=== PATIENT | female | born 1945 | race Caucasian/White ===

== ENCOUNTER 2022-01-31 16:15 | Inpatient (IN) | payer MEDICARE, BC, SELFPAY ==
[2022-01-31] VITALS (46 sets, daily range): BP systolic 67–138; BP diastolic 50–80; PULSE 67–89; RESP 10–25; TEMP 36.4–36.6; O2SAT 98–100; BMI 22.7
--- NOTE | ~2022-01-31 | XR_ITS ---
XR chest ET placement 01/31/2022 16:55 Indication: Endotracheal tube placement Procedure: AP view of the chest Comparison: 08/12/2018 Findings: Endotracheal tube 8 mm above the clarence. Heart size normal. Diffuse bilateral interstitial infiltrates with peribronchial thickening, edema versus atypical pneumonia. No pleural effusion or pn eumothorax. NG tube in the stomach. No acute osseous abnormality. Impression: 1: Endotracheal tube tip 8 mm above the clarence. Recommend retraction approximately 4 cm. 2: Diffuse bilateral interstitial infiltrates which may represent interstitial edema or atypical pne umonia. Reviewed, dictated and finalized at location A. R DIAMOND POWDER Impression: 1: Endotracheal tube tip 8 mm above the clarence. Recommend retraction approximat ellen 4 cm. 2: Diffuse bilateral interstitial infiltrates which may represent interstitial edema or atypical pneumonia.
--- NOTE | ~2022-01-31 | XR_ITS ---
XR abdomen NG/feed tube insert INDICATION: Evaluate NG tube position. TECHNIQUE: Limited KUB perform for evaluating NG tube . COMPARISON: No prior studies for comparison. FINDINGS: NG tube tip in the stomach. Visualized bowel gas pattern is unremarkable.There is a right hip arthroplasty. IMPRESSION: 1: NG tube tip in the stomach. Reviewed, dictated and finalized at location A. SHER DENTURE
--- NOTE | ~2022-01-31 | US_ITS ---
EXAMINATION:US venous doppler LE BI INDICATION:Leg edema TECHNIQUE: Multiple grayscale, color flow and Doppler images of the right and left lower extremity de ep venous systems were obtained and reviewed. COMPARISON:No prior studies for comparison. FINDINGS: The common femoral, superficial femoral and popliteal veins demonstrate normal respiratory variation, augmentation and compressibility. Color flow is also seen within the posterior tibial, pe roneal, greater saphenous and profunda veins. IMPRESSION: 1: No lower extremity deep venous thrombosis. Reviewed, dictated and finalized at location A. F GRINDER AND SCREENER
--- NOTE | ~2022-01-31 | XR_ITS ---
EXAMINATION: XR chest 1V portable DATE: 02/02/2022 06:14 INDICATION: Intubated TECHNIQUE: frontal view of the chest was obtained. COMPARISON: Chest radiograph dated 02/01/2022 FINDINGS: Endotracheal tube tip 4.5 cm above the clarence. Nasogastric tube extends below the left hemidiaphragm with distal tip collimated off the study. Mild opacities at the bilateral lower lung zones including blunting at the right costophrenic angle c onsistent with small right pleural effusion. No pneumothorax or left pleural effusion. The cardiomedi astinal silhouette is normal. IMPRESSION: 1. Mild bibasilar opacities which could represent atelectasis or pneumonia. Small left pleural effusi on. Reviewed, dictated and finalized at location A. NING ENGINEER IMPRESSION: 1. Mild bibasilar opacities which could represent atelectasis or pneumonia. Sma ll left pleural effusion.
--- NOTE | ~2022-01-31 | XR_ITS ---
EXAMINATION: XR chest ET placement Exam Date/Time: 01/31/2022 20:00 SKIP MINER HISTORY: adjusted, confirm placement Comparison: Same date at 4:52 PM. RESULT: Lines, tubes, and devices: Endotracheal tube remains at the level of the clarence. NG tube, in good po sition. Lungs and pleura: Unchanged diffuse reticular peribronchial vascular interstitial opacities. Cardiomediastinal silhouette: Stable. Other: No acute osseous or upper abdominal finding. IMPRESSION: The endotracheal tube remains low-positioned, recommend retraction by 3 cm. Results reported telephonically to Valerio Foster RN by Dr. Day at 8:36 PM on 01/31/2022. Reviewed, dictated and finalized at location K. MINER
--- NOTE | ~2022-01-31 | US_ITS ---
US renal BI 02/01/2022 19:43 Procedure: Realtime transabdominal ultrasound of the kidneys and bladder. Indication: Acute renal insufficiency Comparison: No prior studies for comparison. Findings: Renal echotexture is normal bilaterally without hydronephrosis, contour deforming mass or r enal calculus. The right kidney measures 10.1 cm and left kidney measures 10 cm. Bladder within norm al limits. Impression: 1: Unremarkable renal ultrasound. No stones, masses or hydronephrosis. Reviewed, dictated and finalized at location A. OR OF OPTOMETRY Impression: 1: Unremarkable renal ultrasound. No stones, masses or hydronephrosis.
--- NOTE | ~2022-01-31 | XR_ITS ---
EXAMINATION: XR chest 1V portable INDICATION: Respiratory failure TECHNIQUE: Portable AP chest at 0530 hours COMPARISON: 01/31/2022 FINDINGS: The endotracheal tube ends approximately 1.9 cm above the clarence. The nasogastric tube is f ollowed as far as the stomach. Its tip is beyond the inferior margin of the radiograph. No pleural ef fusion or pneumothorax. There are minimal patchy opacities throughout all lung zones. The cardiomedia stinal silhouette is stable. IMPRESSION: 1. Mild diffuse lung disease, consistent with atelectasis versus pneumonia. Reviewed, dictated and finalized at location A. NG INTERN
--- NOTE | ~2022-01-31 | XR_ITS ---
EXAMINATION: XR chest 1V portable Exam Date/Time: 01/31/2022 20:55 PLANT SECURITY GUARD HISTORY: CXR, et placement Comparison: Same date at 8:03 PM. RESULT: Lines, tubes, and devices: Endotracheal tube now terminates 3 cm above the clarence. NG tube terminate s out of the [id number]. Artifact from overlying hands and bag ventilator. Lungs and pleura: Interval decreased pulmonary opacities, likely related to technique. Cardiomediastinal silhouette: Stable. Other: No acute osseous or upper abdominal finding. IMPRESSION: Endotracheal tube terminates 3 cm above the clarence. Reviewed, dictated and finalized at location K. T SECURITY GUARD
--- NOTE | 2022-01-31 16:21 | ED.GENADULT ---
HPI - General Adult General Chief complaint: Altered Mental Status Stated complaint: unresponsive & intubated Time Seen by Provider: 01/31/22 16:17 Source: EMS and RN notes reviewed Mode of arrival: EMS Limitations: clinical condition History of Present Illness HPI narrative: Patient is 76 years old white female lives alone, called 911 earlier today for shortness of breath, on arrival to her house patient was unable to talk, agonal breathing, subsequently intubated, she had etomidate 20 mg IV, Decadron 10 mg IV and nebulizer treatment prior to arrival to the emergency room. No significant other at the bedside at this time. Related Data Allergies Allergy/AdvReac Type Severity Reaction Status Date / Time PIO Inhibitors Allergy Unknown Verified 08/12/18 05:34 clarithromycin Allergy Unknown Verified 08/12/18 05:34 clonidine Allergy Unknown Verified 08/12/18 05:34 codeine Allergy Unknown Verified 08/12/18 05:34 Iodinated Contrast Media Allergy Unknown Verified 08/12/18 05:34 Contrast Media Allergy Unknown Uncoded 08/12/18 05:34 Review of Systems Review of Systems: All systems reviewed & are unremarkable except as noted in HPI and below Exam Narrative: General appearance: Well-developed, well-nourished, unresponsive, intubated, still under the influence of etomidate. Skin: Normal color, chronic stasis dermatitis of the lower legs bilaterally, 2+ edema bilaterally Head: Normocephalic, nontraumatic Eyes: Clear conjunctiva ENT: Oropharynx normal, ears normal, nose normal Neck: Supple, nontender Chest and respiratory: Intubated, diminution of air entry bilaterally was rales Heart: Normal heart beats possible a murmur Abdomen: Soft, , no organomegaly, quiet bowel sounds Vascular: Normal peripheral pulses, normal capillary refill. Neurologic: Intubated, unresponsive Course Vital Signs Vital signs: Vital Signs Pulse Rate 81 01/31/22 16:32 Pulse Oximetry 99 01/31/22 16:32 Oxygen Delivery Mechanical Ventilation 01/31/22 16:32 Fraction of Inspired Oxygen 100 01/31/22 16:32 Temperature 36.4 C 01/31/22 17:00 Pulse Rate 76 01/31/22 17:00 Respiratory Rate 16 01/31/22 17:00 Blood Pressure 80/58 L 01/31/22 17:00 Pulse Oximetry 100 01/31/22 17:00 Oxygen Delivery Mechanical Ventilation 01/31/22 17:00 Fraction of Inspired Oxygen 100 01/31/22 16:32 Medical Decision Making Vital Signs Vital Signs: Vital Signs Pulse Rate 81 01/31/22 16:32 Pulse Oximetry 99 01/31/22 16:32 Oxygen Delivery Mechanical Ventilation 01/31/22 16:32 Fraction of Inspired Oxygen 100 01/31/22 16:32 Temperature 36.4 C 01/31/22 17:00 Pulse Rate 76 01/31/22 17:00 Respiratory Rate 16 01/31/22 17:00 Blood Pressure 80/58 L 01/31/22 17:00 Pulse Oximetry 100 01/31/22 17:00 Oxygen Delivery Mechanical Ventilation 01/31/22 17:00 Fraction of Inspired Oxygen 100 01/31/22 16:32 Lab Data 01/31/22 16:51 Labs: Lab Results 01/31/22 01/31/22 01/31/22 Range/Units 16:51 16:51 16:51 WBC Pending RBC Pending Hgb Pending Hct Pending MCV Pending MCH Pending MCHC Pending RDW Pending Plt Count Pending MPV Pending Immature Gran % (Auto) Pending Neut % (Auto) Pending Lymph % (Auto) Pending [place] % (Auto) Pending Eos % (Auto) Pending Baso % (Auto) Pending Lymph # (Auto) Pending [place] # (Auto) Pending Eos # (Auto) Pending Baso # (Auto) Pending Abs Immat Gran (auto) Pending Absolute Neuts (auto) Pending Absolute Nucleated RBC Pending Nucleated RBC % Pending PT INR
--- NOTE | 2022-01-31 16:22 | ECG_ITS ---
Measurements Intervals [place] Rate: 82 P: 82 MA: 146 QRS: 79 QRSD: 77 T: 78 QT: 362 QTc: 423 Interpretive Statements SINUS RHYTHM WITH OCCASIONAL SUPRAVENTRICULAR PREMATURE COMPLEXES BORDERLINE ECG COMPARED TO ECG 08/12/2018 05:14:20 NO SIGNIFICANT CHANGES Electronically Signed On 01-31-2022 17:41:19 REEL OPERATOR by Rudi Crawley M.D.
[2022-01-31 17:03] LABS: Basophils Percent Auto 0.3 % (0.2-1.2); Eosinophils Absolute Auto 0.3 K/mm3 (0-0.3); Eosinophils Percent Auto 3.7 % (0-4.4); Hemoglobin 11.6 g/dL (12.0-15.0); Immature Granulocyte Absolute 0.02 K/mm3 (0.00-0.031); Immature Granulocyte Percent A 0.3 % (0-0.5); Lymphocytes Absolute Auto 1.37 K/mm3 (0.9-3.2); Lymphocytes Percent Auto 19.5 % (18.3-44.2); Mean Corpuscular HGB Conc 32.2 g/dl (32-36); Mean Corpuscular Hemoglobin 34.3 pg (26-34); Mean Corpuscular Volume 106.5 fl (80-100); Mean Platelet Volume 10.9 fl (7.4-10.4); Monocytes Absolute Auto 0.4 K/mm3 (0.1-0.6); Monocytes Percent Auto 6.1 % (2.6-8.5); Neutrophils Absolute Auto 4.9 K/mm3 (1.3-6.7); Neutrophils Percent Auto 70.1 % (45.5-73.1); Platelet Count Result 246 k/mm3 (150-375); Red Blood Count 3.38 M/mm3 (4.2-5.4); Red Cell Distribution Width 11.9 % (11.5-14.5)
[2022-01-31 17:05] LABS: Appearance Urine Clear (Clear); Bilirubin Urine Negative (Negative); Blood Urine 1+ (Negative); Color Urine Yellow (Yellow); Glucose Urine UA Trace mg/dL (Negative); Ketones Urine Negative (Negative); Leukocyte Esterase Ur Negative LEU/UL (Negative); Nitrate Urine Negative (Negative); Protein Urine 3+ mg/dL (Negative); Specific Grav Ur 1.025 (1.001-1.035); Urobilinogen Urine 0.2 mg/dL (<2.0)
[2022-01-31 17:06] LABS: Alveolar/Arterial O2 Gradient 110.1 mmHg; Base Excess ABG -3.9 mEq/l (+/-2.0); Fractional Inspired Oxygen 100 %; Oxygen Content ABG 16.6 %vol (16.0-22.0); Oxygen Saturation ABG 99.9 % (95.0-100.0); Oxyhemoglobin 96.7 % THb (90.0-100.0); PCO2 ABG 57.9 mmHg (35.0-45.0); PO2 FiO2 Ratio Arterial Blood 5.45 %; Total Hemoglobin 11.1 g/dL (12.0-18.0)
[2022-01-31 17:08] LABS: Triglycerides 434 mg/dL (<150)
[2022-01-31 17:09] LABS: Modified Allen's Test Pass; Site Drawn RIGHT RADIAL; pH ABG 7.236 (7.350-7.450)
[2022-01-31 17:10] LABS: Arterial Blood Gas PEEP 5 cmH2O; Arterial Blood Gas Tidal Volume 400 ml; Arterial Blood Gas Vent Mode CMV; Arterial Blood Gas Ventilator rate 13 /MIN; Device VENTILATOR
[2022-01-31 17:12] LABS: INR 1.3; Partial Thromboplastin Time 26.4 SECONDS (22.3-36.8); Prothrombin Time 15.8 Seconds (11.1-14.7)
[2022-01-31] MEDS: PROPOFOL IV EMULSION 100 ML 3.92 MG IV CONT (17:15)
[2022-01-31 17:16] LABS: RBC Urine 0-2 /hpf (0-2); WBC Urine 0-3 /hpf
[2022-01-31] MEDS: SODIUM CHLORIDE 0.9% IV 1,000 ML 999 ML (17:16)
[2022-01-31 17:18] LABS: NT Pro B Type Natriuretic Pept 463 pg/mL (5-100)
[2022-01-31] MEDS: ALBUTEROL SULFATE NEB 2.5 MG/3 ML INH 5 MG INHALATION ×2 (17:18→20:00)
[2022-01-31 17:20] LABS: Add Urine Microscopic? YES
[2022-01-31 17:36] LABS: Influenza A QL RT-PCR Negative (Negative); Influenza B QL RT-PCR Negative (Negative); RSV RNA, RT-PCR Negative (Negative); SARS-CoV-2 RNA PCR Negative
[2022-01-31 18:23] LABS: Glucose Point of Care 95 mg/dl (65-105)
[2022-01-31] MEDS: MIDAZOLAM 100MG/NS 100ML(*CRX) 100 MG/100 ML BAG IV CONT (18:31)
[2022-01-31] MEDS: FENTANYL 2,500MCG/NS250ML(*CRX 2,500 MCG/250 ML BAG 7.5 MCG IV CONT (18:32)
[2022-01-31 18:38] LABS: Alveolar/Arterial O2 Gradient 114.3 mmHg; Base Excess ABG -2.6 mEq/l (+/-2.0); Device VENTILATOR; Fractional Inspired Oxygen 40 %; HCO3 ABG 24.1 mEq/l (22.0-26.0); Modified Allen's Test Pass; Oxygen Content ABG 15.9 %vol (16.0-22.0); Oxygen Saturation ABG 97.7 % (95.0-100.0); Oxyhemoglobin 95.3 % THb (90.0-100.0); PCO2 ABG 49.6 mmHg (35.0-45.0); PO2 ABG 113.9 mmHg (80.0-100.0); PO2 FiO2 Ratio Arterial Blood 2.85 %; Site Drawn RIGHT RADIAL; Total Hemoglobin 11.7 g/dL (12.0-18.0); pH ABG 7.304 (7.350-7.450)
[2022-01-31 18:39] LABS: Arterial Blood Gas PEEP 5 cmH2O; Arterial Blood Gas Tidal Volume 450 ml; Arterial Blood Gas Vent Mode CMV; Arterial Blood Gas Ventilator rate 16 /MIN
--- NOTE | 2022-01-31 19:00 | PM.IMHP ---
H&P: HPI History of Present Illness Date/Time: 01/31/22 19:00 Chief Complaint: Shortness of breath. Narrative: This is a 76-year-old female smoker with COPD, coronary artery disease with history of stents, hypertension, hyperlipidemia, and diabetes who presented to the emergency department via EMS from home for evaluation of shortness of breath. She is intubated on mechanical ventilation at the time my evaluation however she is awake, following commands, and can answer questions by either nodding or shaking her head. It seems as though she felt okay when she got up this morning though she has had chills and a cough the last couple of days. As the day went on she started to feel progressively more short of breath and it got so severe that she called 911 as her rescue inhaler was not helping. She denies headache, chest pain, syncope, abdominal pain, nausea, vomiting, and diarrhea. On EMS arrival she was reportedly unresponsive with agonal respirations and she was intubated in the field. She received IV Decadron and and a nebulizer treatment in route to the hospital. Chest x-ray on arrival showed diffuse bilateral interstitial infiltrates (interstitial edema edema or atypical pneumonia); she tested negative for influenza, COVID, and RSV. She has since been started on broad-spectrum antibiotics and is being admitted to the ICU for further treatment and evaluation. Review of Systems Review of Systems: A review of systems was obtained but limited as the patient can only nod and shake her head as she is intubated on mechanical ventilation. Except as documented all other systems were negative. [facility] Past Medical History Medical History (Updated 01/31/22 @ 23:42 by Maribel Pérez PA-C) Anxiety Chronic obstructive pulmonary disease Coronary artery disease Dyslipidemia Hypertension Insulin dependent diabetes mellitus Pneumonia Tobacco dependence Surgical History Surgical History (Updated 01/31/22 @ 23:30 by Maribel Pérez PA-C) History of cardiac catheterization History of heart artery stent History of right hip replacement Family History Family History Other Unknown family medical history Social History Social History (Updated 01/31/22 @ 23:33 by Maribel Pérez PA-C) Social History: Surrogate medical decision maker: Carol Cha, daughter. Code status: Full code. Smoking status: Current every day smoker Alcohol intake: former Substance use: never Spiritual care concerns: No Meds Home Medications and Allergies Home Medications Medication Instructions Recorded Confirmed Type albuterol sulfate 90 mcg/actuation 2 puff inhalation Q6H 01/31/22 01/31/22 History aerosol inhaler aspirin 81 mg tablet,delayed 81 mg PO DAILY 01/31/22 01/31/22 History release atorvastatin 80 mg tablet 80 mg PO HS 01/31/22 01/31/22 History carvedilol 25 mg tablet 25 mg PO BID 01/31/22 01/31/22 History cholecalciferol (vitamin D3) 25 25 mcg PO DAILY 01/31/22 01/31/22 History mcg (1,000 unit) capsule coenzyme Q10 50 mg tablet 50 mg PO DAILY 01/31/22 01/31/22 History ferrous sulfate 142 mg (45 mg 142 mg PO DAILY 01/31/22 01/31/22 History iron) tablet,extended release fluticasone 250 mcg-salmeterol 50 1 inh inhalation Q12H 01/31/22 01/31/22 History mcg/dose blistr powdr for inhalation furosemide 20 mg tablet 20 mg PO DAILY 01/31/22 01/31/22 History glipizide 2.5 mg tablet, extended 2.5 mg PO DAILY 01/31/22 01/31/22 History release 24 hr insulin glargine 100 unit/mL (3 10 unit subcut HS 01/31/22 01/31/22 History mL) subcutaneous pen (Lantus Solostar U-100 Insulin) losartan 100 mg tablet 100 mg PO DAILY 01/31/22 01/31/22 History ropinirole 1 mg tablet 1 mg PO BID 01/31/22 01/31/22 History tramadol 50 mg tablet 50 mg PO Q8H PRN Shortness Of 01/31/22 01/31/22 History Breath Or Wheezing Allergies Allergy/AdvReac Type Sev
[2022-01-31] MEDS: IPRATROPIUM BR 0.02% INH SOLN 0.5 MG/2.5 ML VIAL INHALATION ×2 (20:00→21:20)
[2022-01-31] MEDS: SODIUM CHLORIDE 0.9% IV 1,000 ML 999 ML IV CONT (21:20)
[2022-01-31] MEDS: ALBUTEROL SULFATE NEB 2.5 MG/3 ML INH 1.25 MG INHALATION (21:20)
[2022-02-01] VITALS (27 sets, daily range): BP systolic 129–161; BP diastolic 54–71; PULSE 60–96; RESP 16–18; TEMP 36.4–36.7; O2SAT 94–100; BMI 22.7
[2022-02-01] MEDS: MINERAL OIL/WHITE PETROLATUM OINTMENT 1 APPLIC EACH EYE ×3 (00:31→20:34)
[2022-02-01] MEDS: SODIUM CHLORIDE 0.9% IV 1,000 ML 100 ML IV CONT (00:50)
[2022-02-01] MEDS: methylPREDNISolone SOD SUCC 125 MG VIAL 60 MG IV PUSH ×4 (00:51→20:31)
[2022-02-01 01:24] LABS: Iron 77 ug/dL (37-170)
[2022-02-01 01:28] LABS: Hemoglobin A1C 5.9 % (<5.7)
[2022-02-01 01:34] LABS: Percent Iron Saturation 28 % (20-50)
[2022-02-01 01:42] LABS: Procalcitonin 0.1 ng/mL
[2022-02-01] MEDS: ALBUTEROL SULFATE NEB 2.5 MG/3 ML INH 5 MG INHALATION ×4 (01:50→21:27)
[2022-02-01] MEDS: IPRATROPIUM BR 0.02% INH SOLN 0.5 MG/2.5 ML VIAL INHALATION ×4 (01:50→21:28)
[2022-02-01 01:56] LABS: Thyroid Stimulating Hormone Reflex 0.145 uIU/mL (0.465-4.68)
[2022-02-01 01:56] LABS: Alanine Aminotransferase 34 U/L (6-35); Albumin Level 3.1 g/dL (3.5-5.1); Alkaline Phosphatase 86 U/L (38-126); Anion Gap 4 mmol/L (8-16); Aspartate Amino Transferase 38 U/L (14-36); Bilirubin,Total 0.2 mg/dL (0.2-1.3); Blood Urea Nitrogen 50 mg/dL (7-17); CRP < 0.5 mg/dL (<1.0); Calcium 7.9 mg/dL (8.4-10.2); Carbon Dioxide 23 mmol/L (22-30); Chloride 107 mmol/L (98-107); Estimated CRCL calculation 18 ml/min; Estimated Glomerular Filt Rate 22; Glucose 204 mg/dL (65-110); Potassium 5.8 mmol/L (3.4-5.0); Sodium 134 mmol/L (137-145)
[2022-02-01 02:13] LABS: Folic Acid > 20.0 ng/mL (2.76->20); Vitamin B12 > 1000.0 pg/mL (239-931)
[2022-02-01 02:13] LABS: Troponin I < 0.012 ng/mL (0.000-0.034)
[2022-02-01] MEDS: SODIUM BICARBONATE 8.4% 50 MEQ/50 ML SYRINGE IV PUSH (02:37)
[2022-02-01] MEDS: DEXTROSE 50% 25 GM/50 ML SYRINGE IV PUSH (02:37)
[2022-02-01] MEDS: INSULIN HUMAN REGULAR (*BKC) 100 UNITS/ML 10 UNITS IV PUSH (02:37)
[2022-02-01] MEDS: CALCIUM GLUCONATE 1,000 MG/10 ML VIAL 1000 MG IV PUSH (02:40)
[2022-02-01 03:18] LABS: Free T4 Free Thyroxine Reflex 1.05 ng/dL (0.78-2.19)
[2022-02-01 04:12] LABS: Total Triiodothyronine (T3) 1.03 NG/ML (0.97-1.69)
[2022-02-01 04:37] LABS: Hematocrit 31.1 % (37.0-47.0); Hemoglobin 10.2 g/dL (12.0-15.0); Immature Granulocyte Absolute 0.04 K/mm3 (0.00-0.031); Immature Granulocyte Percent A 0.5 % (0-0.5); Lymphocytes Percent Auto 6.9 % (18.3-44.2); Mean Corpuscular HGB Conc 32.8 g/dl (32-36); Mean Corpuscular Hemoglobin 34.1 pg (26-34); Monocytes Absolute Auto 0.1 K/mm3 (0.1-0.6); Monocytes Percent Auto 1.5 % (2.6-8.5); Neutrophils Absolute Auto 7.9 K/mm3 (1.3-6.7); Neutrophils Percent Auto 91.1 % (45.5-73.1); Platelet Count Result 165 k/mm3 (150-375); Red Blood Count 2.99 M/mm3 (4.2-5.4); Red Cell Distribution Width 11.9 % (11.5-14.5); White Blood Count 8.7 K/mm3 (4.5-10.0)
[2022-02-01 04:52] LABS: Alanine Aminotransferase 33 U/L (6-35); Alkaline Phosphatase 73 U/L (38-126); Anion Gap 2 mmol/L (8-16); Aspartate Amino Transferase 39 U/L (14-36); Bilirubin,Total 0.2 mg/dL (0.2-1.3); Blood Urea Nitrogen 50 mg/dL (7-17); Calcium 8.8 mg/dL (8.4-10.2); Carbon Dioxide 26 mmol/L (22-30); Chloride 107 mmol/L (98-107); Estimated CRCL calculation 20 ml/min; Estimated Glomerular Filt Rate 24; Glucose 228 mg/dL (65-110); Potassium 4.6 mmol/L (3.4-5.0); Sodium 135 mmol/L (137-145)
[2022-02-01 05:23] LABS: Alveolar/Arterial O2 Gradient 91.7 mmHg; Base Excess ABG -1.8 mEq/l (+/-2.0); Carboxyhemoglobin 0.3 % THb (0-2.0); Fractional Inspired Oxygen 30 %; HCO3 ABG 24.5 mEq/l (22.0-26.0); Methemoglobin ABG 0.3 %THb (0-1.5); Oxygen Content ABG 13.5 %vol (16.0-22.0); Oxygen Saturation ABG 90.9 % (95.0-100.0); Oxyhemoglobin 90.1 % THb (90.0-100.0); PCO2 ABG 48.8 mmHg (35.0-45.0); PO2 ABG 64.9 mmHg (80.0-100.0); PO2 FiO2 Ratio Arterial Blood 2.16 %; Reduced Hemoglobin 9.3 %THb (0-5.0); Total Hemoglobin 10.6 g/dL (12.0-18.0); pH ABG 7.319 (7.350-7.450)
[2022-02-01 05:24] LABS: Arterial Blood Gas Vent Mode CMV; Arterial Blood Gas Ventilator rate 16 /MIN; Device VENTILATOR; Modified Allen's Test Unable to perform; Site Drawn RIGHT RADIAL
[2022-02-01 05:25] LABS: Arterial Blood Gas PEEP 5 cmH2O; Arterial Blood Gas Tidal Volume 350 ml
[2022-02-01 05:27] LABS: Troponin I < 0.012 ng/mL (0.000-0.034)
[2022-02-01 07:38] LABS: Troponin I < 0.012 ng/mL (0.000-0.034)
[2022-02-01] MEDS: INSULIN ASPART (*BKC) 100 UNITS/ML SUB-Q (09:10)
[2022-02-01] MEDS: ENOXAPARIN 30 MG/0.3 ML SYRINGE SUB-Q (09:11)
[2022-02-01 10:10] LABS: Creatine Kinase 48 U/L (30-135)
[2022-02-01] MEDS: MIDAZOLAM 100MG/NS 100ML(*CRX) 100 MG/100 ML BAG IV CONT (10:14)
--- NOTE | 2022-02-01 12:24 | WPDCNINT ---
Assessment and Plan Assessment and plan (1) Acute respiratory failure with hypoxia and hypercarbia: Code(s): J96.01 - Acute respiratory failure with hypoxia; J96.02 - Acute respiratory failure with hypercapnia Status: Acute Assessment and Plan: Multifactorial Acute on chronic Respiratory failure secondary to COPD, congestive heart failure and possible pneumonia Continue full mechanical ventilation support to prevent hypoxemia/hypercarbia and end organ damage. ABG reviewed -patient on 50 tidal volume rate of 18 40% FiO2 and 5 of PEEP PCXR reviewed Continue steroids and bronchodilators Lasix IV Continue Rocephin and azithromycin Check cultures urine Legionella pneumococcal antigen and mycoplasma IgM Patient negative for RSV COVID and influenza Low tidal volume ventilation strategy to prevent volutrauma (2) Pneumonia: Code(s): J18.9 - Pneumonia, unspecified organism Status: Acute (3) COPD exacerbation: Code(s): J44.1 - Chronic obstructive pulmonary disease with (acute) exacerbation Status: Acute (4) Type 2 diabetes mellitus: Code(s): E11.9 - Type 2 diabetes mellitus without complications Status: Acute (5) Coronary artery disease: Code(s): I25.10 - Atherosclerotic heart disease of [place] coronary artery without angina pectoris Status: Acute Assessment and Plan: Continue aspirin, statin Check echo (6) Congestive heart failure: Code(s): I50.9 - Heart failure, unspecified Status: Acute Assessment and Plan: Elevated BNP and interstitial edema on chest x-ray suggest congestive heart failure She also has lower extremity edema Check echo Will give Lasix (7) Elevated serum creatinine: Code(s): R79.89 - Other specified abnormal findings of blood chemistry Status: Acute Assessment and Plan: Patient presented with elevated serum creatinine 2.2. Which is 2.0 today Baseline creatinine unknown but I suspect patient has chronic kidney disease as per suggested by her daughter Check renal ultrasound Check urine electrolytes Plan DVT prophylaxis -Lovenox Stress ulcer prophylaxis -PPI Nutrition -start Tube Feeds Code Status - Full Code Patient's daughter updated at bedside Total Critical Care Time - 35 minutes Due to a high probability of clinically significant, life threatening deterioration, the patient required my highest level of preparedness to intervene emergently and I personally spent this critical care time directly and personally managing the patient. This critical care time included obtaining a history; examining the patient; pulse oximetry; ordering and review of studies; arranging urgent treatment with development of a management plan; evaluation of patient's response to treatment; frequent reassessment; and discussions with other providers. It was exclusive of separately billable procedures and treating other patients and teaching time. Please see Assessment and Plan section and the rest of the note for further information on patient assessment and treatment Band Sawyer Consult Note Consult date: 02/01/22 Reason for consult: Acute respiratory failure HPI: Aleida King is a 76 year old female with past medical history of smoking COPD, coronary artery disease with history of stents, hypertension, hyperlipidemia, peripheral arterial disease with arterial stenting bilaterally and diabetes who presented to the emergency department via EMS from home for evaluation of shortness of breath. She was intubated in the in the field due to agonal breathing and hypoxia Per daughter this morning patient has been having cough chest congestion for few days. She was short of breath. She normally sleeps in a recliner with head elevated. History is limited and obtained from patient's daughter who does not live with her. She did states the patient does have kidney disease and is going to see a director of respiratory therapy as an outpatient but does n
[2022-02-01 12:36] LABS: Glucose Point of Care 154 mg/dl (65-105)
[2022-02-01] MEDS: FUROSEMIDE INJ 40 MG/4 ML VIAL IV PUSH (13:07)
[2022-02-01] MEDS: FENTANYL 2,500MCG/NS250ML(*CRX 2,500 MCG/250 ML BAG 12.5 MCG IV CONT (13:17)
[2022-02-01 14:22] LABS: Creatinine Urine 16.4 mg/dL
[2022-02-01 14:26] LABS: Sodium Urine Random 123 meq/L
[2022-02-01 16:59] LABS: Glucose Point of Care 162 mg/dl (65-105)
[2022-02-01 18:11] LABS: Glucose Point of Care 150 mg/dl (65-105)
[2022-02-01] MEDS: cefTRIAXone 2 GM in SODIUM CHLORIDE 0.9% IV 100 ML 200 ML IVPB (20:32)
--- NOTE | 2022-02-01 23:42 | ECHO_ITS ---
Patient Info Name: Aleida King Age: 76 years : 1945 Gender: Female Ht: 66 in Wt: 141 lbs BSA: 1.73 m2 HR: 78 bpm BP: 136 / 54 mmHg Heart Rhythm: Sinus Rhythm Technical Quality: Fair Exam Date: 02/01/2022 10:26 AM Exam Location: [facility] Pulmonary Exam Room: ICU7 Patient Status: Inpatient Admit Date: 01/31/2022 Staff Ordering Physician: Maribel Pérez PA-C Software Recruiter: Bernadette Cabrales RDCS Attending Provider: Yoselyn Lanier DO Referring Physician: Elisa LANGLEY; Exam Type: CA echo doppler color flow Study Info Indications - RESP FAILURE CAD HTN Complete two-dimensional, color flow and Doppler transthoracic echocardiogram is performed. Summary 1. Complete two-dimensional, color flow and Doppler transthoracic echocardiogram is performed. 2. Normal left ventricular size and contractility. 3. Grade 1 diastolic noncompliance. 4. Moderately calcified mitral valve annulus. 5. Sclerotic aortic valve which is not functionally stenotic. Left Ventricle Left ventricular chamber dimension is normal. Left ventricular systolic function is normal, estimated at 60-65%. The left ventricular diastolic function is grade I diastolic dysfunction. Right Ventricle Right ventricular chamber dimension is normal. Left Atria Left atrial chamber dimension is normal. Right Atria Right atrial chamber dimension is normal. Aortic Valve The aortic valve is trileaflet. There is moderate aortic valve sclerosis. There is no aortic valve stenosis. Pulmonic Valve The pulmonic valve is normal. Mitral Valve The mitral valve has normal leaflets. The mitral valve annulus is moderately calcified. Tricuspid Valve The tricuspid valve leaflets are normal. Pericardium/Pleural The pericardium appears normal. Aorta The aortic root size at the sinus of Valsalva is normal. Left Ventricular Outflow Tract Name Value Normal LVOT 2D LVOT Diameter 2.0 cm LVOT Doppler LVOT Peak Gradient 3 mmHg LVOT Mean Gradient 2 mmHg LVOT VTI 25 cm LVOT VTI/AV VTI Ratio 0.8 LVOT Stroke Volume 79 ml LVOT CO 14.5 l/min LVOT CI 8.4 l/min/m2 Pulmonic Valve Name Value Normal PV Doppler PV Peak Gradient 4 mmHg Mitral Valve Name Value Normal MV Doppler MV Decel [place] 326 cm/s2 MV PHT 81 ms MV Area (PHT)
[2022-02-02] VITALS (32 sets, daily range): BP systolic 134–198; BP diastolic 51–90; PULSE 73–126; RESP 12–26; TEMP 36.3–37.4; O2SAT 90–98
[2022-02-02 00:18] LABS: Glucose Point of Care 264 mg/dl (65-105)
[2022-02-02] MEDS: INSULIN ASPART (*BKC) 100 UNITS/ML SUB-Q ×4 (00:40→20:50)
[2022-02-02] MEDS: methylPREDNISolone SOD SUCC 125 MG VIAL 60 MG IV PUSH ×2 (00:41→05:20)
[2022-02-02 04:55] LABS: Hematocrit 33.4 % (37.0-47.0); Hemoglobin 10.8 g/dL (12.0-15.0); Mean Corpuscular HGB Conc 32.3 g/dl (32-36); Mean Corpuscular Hemoglobin 35.3 pg (26-34); Mean Corpuscular Volume 109.2 fl (80-100); Mean Platelet Volume 11.1 fl (7.4-10.4); Platelet Count Result 209 k/mm3 (150-375); Red Blood Count 3.06 M/mm3 (4.2-5.4); Red Cell Distribution Width 12.4 % (11.5-14.5); White Blood Count 17.5 K/mm3 (4.5-10.0)
[2022-02-02 05:06] LABS: Alanine Aminotransferase 32 U/L (6-35); Albumin Level 3.3 g/dL (3.5-5.1); Alkaline Phosphatase 82 U/L (38-126); Anion Gap 7 mmol/L (8-16); Aspartate Amino Transferase 27 U/L (14-36); Bilirubin,Total 0.1 mg/dL (0.2-1.3); Blood Urea Nitrogen 56 mg/dL (7-17); Calcium 8.5 mg/dL (8.4-10.2); Carbon Dioxide 25 mmol/L (22-30); Chloride 107 mmol/L (98-107); Estimated CRCL calculation 18 ml/min; Estimated Glomerular Filt Rate 22; Glucose 234 mg/dL (65-110); Sodium 139 mmol/L (137-145)
[2022-02-02 06:45] LABS: Alveolar/Arterial O2 Gradient 82.4 mmHg; Base Excess ABG -0.6 mEq/l (+/-2.0); Carboxyhemoglobin 0.1 % THb (0-2.0); HCO3 ABG 26.1 mEq/l (22.0-26.0); Methemoglobin ABG 0.3 %THb (0-1.5); Oxygen Content ABG 15.5 %vol (16.0-22.0); Oxygen Saturation ABG 92.7 % (95.0-100.0); Oxyhemoglobin 91.8 % THb (90.0-100.0); PCO2 ABG 51.9 mmHg (35.0-45.0); PO2 ABG 70.5 mmHg (80.0-100.0); PO2 FiO2 Ratio Arterial Blood 2.35 %; Reduced Hemoglobin 7.8 %THb (0-5.0); pH ABG 7.319 (7.350-7.450)
[2022-02-02 06:50] LABS: Fractional Inspired Oxygen 50 %
[2022-02-02 06:51] LABS: Site Drawn RIGHT RADIAL
[2022-02-02 06:52] LABS: Device VENTILATOR; Modified Allen's Test Pass
[2022-02-02 06:53] LABS: Arterial Blood Gas PEEP 5 cmH2O; Arterial Blood Gas Vent Mode CMV; Arterial Blood Gas Ventilator rate 18 /MIN
[2022-02-02 06:54] LABS: Arterial Blood Gas Tidal Volume 350 ml
[2022-02-02] MEDS: INSULIN GLARGINE (*BKC) 100 UNITS/ML 10 UNITS SUB-Q (07:42)
[2022-02-02] MEDS: FUROSEMIDE INJ 40 MG/4 ML VIAL IV PUSH (07:42)
[2022-02-02] MEDS: ENOXAPARIN 30 MG/0.3 ML SYRINGE SUB-Q (07:42)
[2022-02-02] MEDS: MINERAL OIL/WHITE PETROLATUM OINTMENT 1 APPLIC EACH EYE (07:43)
[2022-02-02] MEDS: ALBUTEROL SULFATE NEB 2.5 MG/3 ML INH 5 MG INHALATION ×3 (07:45→20:11)
[2022-02-02] MEDS: IPRATROPIUM BR 0.02% INH SOLN 0.5 MG/2.5 ML VIAL INHALATION ×3 (07:45→20:11)
[2022-02-02 09:12] LABS: Alveolar/Arterial O2 Gradient 154.4 mmHg; Base Excess ABG -0.9 mEq/l (+/-2.0); Device VENTILATOR; Fractional Inspired Oxygen 40 %; Modified Allen's Test Pass; Oxygen Content ABG 15.6 %vol (16.0-22.0); Oxygen Saturation ABG 94.7 % (95.0-100.0); Oxyhemoglobin 92.9 % THb (90.0-100.0); PCO2 ABG 46.6 mmHg (35.0-45.0); PO2 ABG 77.2 mmHg (80.0-100.0); PO2 FiO2 Ratio Arterial Blood 1.93 %; Site Drawn RIGHT RADIAL; Total Hemoglobin 11.9 g/dL (12.0-18.0); pH ABG 7.348 (7.350-7.450)
[2022-02-02 09:13] LABS: Arterial Blood Gas PEEP 5 cmH2O; Arterial Blood Gas Pressure Support 5 cmH2O; Arterial Blood Gas Vent Mode SPONTANEOUS
--- NOTE | 2022-02-02 09:20 | WPDINTPN ---
Progress Note: A&P Assessment and Plan (1) Acute respiratory failure with hypoxia and hypercarbia: Code(s): J96.01 - Acute respiratory failure with hypoxia; J96.02 - Acute respiratory failure with hypercapnia Status: Acute Assessment and Plan: Multifactorial Acute on chronic Respiratory failure secondary to COPD, congestive heart failure and possible pneumonia Continue full mechanical ventilation support to prevent hypoxemia/hypercarbia and end organ damage. ABG reviewed -patient on 350 tidal volume rate of 18 40% FiO2 and 5 of PEEP PCXR reviewed 5/5 PSV SBT done for more than 30 minutes. RSBI, ABGI and Vitals acceptable. Pt awake and following commands. Will extubate and monitor. NPO for now. Bipap PRN and at night. I suspect patient is a CO2 retainer Continue steroids and bronchodilators Continue Lasix IV Continue Rocephin and azithromycin Check cultures urine Legionella pneumococcal antigen and mycoplasma IgM Patient negative for RSV COVID and influenza Low tidal volume ventilation strategy to prevent volutrauma (2) Pneumonia: Code(s): J18.9 - Pneumonia, unspecified organism Status: Acute Assessment and Plan: See above (3) COPD exacerbation: Code(s): J44.1 - Chronic obstructive pulmonary disease with (acute) exacerbation Status: Acute Assessment and Plan: See above (4) Type 2 diabetes mellitus: Code(s): E11.9 - Type 2 diabetes mellitus without complications Status: Acute Assessment and Plan: SSI and will order Lantus (5) Coronary artery disease: Code(s): I25.10 - Atherosclerotic heart disease of [place] coronary artery without angina pectoris Status: Acute Assessment and Plan: Continue aspirin, statin Check echo (6) Congestive heart failure: Code(s): I50.9 - Heart failure, unspecified Status: Acute Assessment and Plan: Elevated BNP and interstitial edema on chest x-ray suggest congestive heart failure She also has lower extremity edema Echo Summary ? 1. Complete two-dimensional, color flow and Doppler transthoracic echocardiogram is performed. ? 2. Normal left ventricular size and contractility. ? 3. Grade 1 diastolic noncompliance. ? 4. Moderately calcified mitral valve annulus. ? 5. Sclerotic aortic valve which is not functionally stenotic. Continue Lasix (7) Elevated serum creatinine: Code(s): R79.89 - Other specified abnormal findings of blood chemistry Status: Acute Assessment and Plan: Patient presented with elevated serum creatinine 2.2. Which is 2.0 today Baseline creatinine unknown but I suspect patient has chronic kidney disease as per suggested by her daughter Normal renal ultrasound urine electrolytes suggest renal disease Normal CK Plan DVT prophylaxis -Lovenox Stress ulcer prophylaxis -PPI Nutrition -tolerated Tube Feeds Code Status - Full Code Total Critical Care Time - 30 minutes Due to a high probability of clinically significant, life threatening deterioration, the patient required my highest level of preparedness to intervene emergently and I personally spent this critical care time directly and personally managing the patient. This critical care time included obtaining a history; examining the patient; pulse oximetry; ordering and review of studies; arranging urgent treatment with development of a management plan; evaluation of patient's response to treatment; frequent reassessment; and discussions with other providers. It was exclusive of separately billable procedures and treating other patients and teaching time. Please see Assessment and Plan section and the rest of the note for further information on patient assessment and treatment Subjective Date/time seen: 02/02/22 Overnight events reviewed. Afebrile Continues to be on mechanical ventilation 5 of PEEP and 40% FiO2 Adequate urine output Continues to be sedated with fentanyl and Versed Vitals accepta
--- NOTE | 2022-02-02 09:37 | PC.NURSE ---
0920-Patient extubated. Placed on 5LNC. Dr. High stated to keep the oxygen saturations between 90-94% and keep patient npo for now. VSS. Will continue to monitor.
[2022-02-02] MEDS: LABETALOL HCL INJ 100 MG/20 ML VIAL 20 MG IV PUSH ×2 (10:41→12:57)
[2022-02-02 10:49] LABS: Glucose Point of Care 217 mg/dl (65-105)
[2022-02-02] MEDS: carvediloL 25 MG TABLET PO ×2 (10:56→20:39)
[2022-02-02] MEDS: amLODIPine BESYLATE 5 MG TABLET PO ×2 (10:56→16:42)
--- NOTE | 2022-02-02 11:08 | P.CDI_ITS ---
CDI Query Clarified Diagnosis Clarified Diagnosis: Patient with elevated BNP on 01/31/22 lab work. Furosemide listed as a home medication. Patient with documented edema. CHF listed on the assessment and plan. Please specify type and acuity of heart failure if known. * Acute * Chronic * Acute on Chronic * Unknown * Systolic * Diastolic * Combined Systolic and Diastolic * Unknown
[2022-02-02 11:54] LABS: Glucose Point of Care 214 mg/dl (65-105)
--- NOTE | 2022-02-02 11:59 | PCNFU ---
Nutrition Follow-Up Complete: Inadequate Oral Intake as related to mechanical intubation as evidenced by NPO. Goal: Meet estimated nutritional needs. Patient is progressing towards goal. We will continue current goal. Pt current nutrition is Clear liquids. Nutrition recommendation: Advance as tolerated per MD orders. Last recorded weight is 65.4 kg. Bowel Motility:No Bm reported. Labs Reviewed:Glu 234, GFR 22, BUN 56, Cr 2.2, Alb 3.3 Meds Noted: Lovenox Skin: WNL Additional Notes:Patient has been extubated this morning. Diet order has advanced to a clear liquid diet with Ensure Clear on trays. Diet supplement is providing an additional 240 kcals and 8 gms protein. Agree with diet orders. Will monitor in ICU rounds and monitoring every 5 days.
[2022-02-02 14:54] LABS: Glucose Point of Care 189 mg/dl (65-105)
[2022-02-02 16:48] LABS: Glucose Point of Care 251 mg/dl (65-105)
[2022-02-02] MEDS: hydrALAZINE HCL 20 MG/ML VIAL IV PUSH (16:49)
[2022-02-02 17:01] LABS: Triglycerides 349 mg/dL (<150)
--- NOTE | 2022-02-02 20:04 | PM.IMPN ---
Progress Note: A&P Assessment and Plan (1) Acute respiratory failure with hypoxia and hypercarbia: Code(s): J96.01 - Acute respiratory failure with hypoxia; J96.02 - Acute respiratory failure with hypercapnia Status: Acute Assessment and Plan: Patient presents with shortness of breath and found to have acute respiratory failure. [place] multifactorial from COPD, CHF and/or PNA -Patient intubated on admission 01/31 -Treated with steroids, nebs, abx and Lasix. -RSV COVID and influenza negative -BCx NGTD -urine Legionella pneumococcal antigen and mycoplasma IgM pending Extubated 02/02/22 Continue steroids and bronchodilators Lasix IV prn Continue Rocephin and azithromycin (2) Pneumonia: Code(s): J18.9 - Pneumonia, unspecified organism Status: Acute Assessment and Plan: CXR showing diffuse bilateral infiltrates on admission. As above (3) COPD exacerbation: Code(s): J44.1 - Chronic obstructive pulmonary disease with (acute) exacerbation Status: Acute Assessment and Plan: Improved. Scattered rhonchi. Continue steroids and neb treatments. As above (4) Type 2 diabetes mellitus: Code(s): E11.9 - Type 2 diabetes mellitus without complications Status: Acute Assessment and Plan: A1c 5.9. The patient's blood glucose was reviewed on 02/02 Glucose elevated Continue AccuCheks covering with sliding scale. Hypoglycemia protocol available as needed. lantus once given (5) Coronary artery disease: Code(s): I25.10 - Atherosclerotic heart disease of [place] coronary artery without angina pectoris Status: Acute Assessment and Plan: No complaints of chest pain Resume aspirin, statin (6) Congestive heart failure: Code(s): I50.9 - Heart failure, unspecified Status: Acute Assessment and Plan: Elevated BNP and interstitial edema on chest x-ray suggest congestive heart failure She also has lower extremity edema Echo showing ? 1. Complete two-dimensional, color flow and Doppler transthoracic echocardiogram is performed. ? 2. Normal left ventricular size and contractility. ? 3. Grade 1 diastolic noncompliance. ? 4. Moderately calcified mitral valve annulus. ? 5. Sclerotic aortic valve which is not functionally stenotic. Lasix given prn (7) Elevated serum creatinine: Code(s): R79.89 - Other specified abnormal findings of blood chemistry Status: Acute Assessment and Plan: Patient presented with elevated serum creatinine 2.2. Which is unchanged today Baseline creatinine unknown but I suspect patient has chronic kidney disease as per suggested by her daughter Normal renal ultrasound urine electrolytes suggest renal disease Normal CK Plan DVT prophylaxis -Lovenox Stress ulcer prophylaxis - PPI Nutrition - Diab diet Code Status - Full Code Subjective Date/time seen: 02/02/22 20:04 Interval history: 76yo female with COPD, CHF, CAD and DM here for shortness of breath and found to have acute respiratory failure. Patient extubated today. She feels occasional shortness of breath. Cough is productive. Tolerating oral intake. No odynophagia or dysphagia. No chest pain Exam Narrative: AF 98.1 155/52 94 26 93% 3L Gen - NARD sitting up right in bed Chest - bibasilar inspiratory crackles with expiratory rhonchi, nml RR CV - RRR S1/S2; Tele showing no significant dysrhythmias. Abd - Soft, NT/ND, Positive BS - Ngo secured draining clear yellow urine Ext - bilat chronic venous stasis skin changes with left [place] dried dark eschar. Neuro - Alert and appropriate. No focal findings Psych - Nml mood and affect Skin - Warm and dry Objective Data Vital Signs Vital Signs: Vital Signs - 24 hr 02/01/22 21:16 02/01/22 22:00 02/02/22 00:00 Temperature Pulse Rate 71 79 Respiratory Rate 18 Blood Pressure 141/60 H Pulse Oximetry 95 97 Oxygen Delivery Mechanical Ventilati
[2022-02-02] MEDS: cefTRIAXone 2 GM in SODIUM CHLORIDE 0.9% IV 100 ML 200 ML IVPB (20:39)
[2022-02-02 20:55] LABS: Glucose Point of Care 274 mg/dl (65-105)
[2022-02-03] VITALS (24 sets, daily range): BP systolic 110–170; BP diastolic 49–90; PULSE 80–105; RESP 15–20; TEMP 36.2–37.6; O2SAT 91–98
[2022-02-03] MEDS: ALBUTEROL SULFATE NEB 2.5 MG/3 ML INH 5 MG INHALATION ×4 (02:28→22:01)
[2022-02-03] MEDS: IPRATROPIUM BR 0.02% INH SOLN 0.5 MG/2.5 ML VIAL INHALATION ×4 (02:29→22:01)
[2022-02-03] MEDS: ACETAMINOPHEN 325 MG TABLET 650 MG PO ×2 (03:10→18:26)
[2022-02-03 05:26] LABS: Hematocrit 35.3 % (37.0-47.0); Hemoglobin 11.7 g/dL (12.0-15.0); Mean Corpuscular HGB Conc 33.1 g/dl (32-36); Mean Corpuscular Volume 105.7 fl (80-100); Mean Platelet Volume 11.3 fl (7.4-10.4); Platelet Count Result 222 k/mm3 (150-375); Red Blood Count 3.34 M/mm3 (4.2-5.4); Red Cell Distribution Width 12.4 % (11.5-14.5); White Blood Count 16.3 K/mm3 (4.5-10.0)
[2022-02-03 05:43] LABS: Alanine Aminotransferase 27 U/L (6-35); Albumin Level 3.5 g/dL (3.5-5.1); Alkaline Phosphatase 92 U/L (38-126); Anion Gap 7 mmol/L (8-16); Aspartate Amino Transferase 27 U/L (14-36); Bilirubin,Total 0.4 mg/dL (0.2-1.3); Blood Urea Nitrogen 58 mg/dL (7-17); Calcium 8.8 mg/dL (8.4-10.2); Carbon Dioxide 29 mmol/L (22-30); Chloride 101 mmol/L (98-107); Estimated CRCL calculation 20 ml/min; Estimated Glomerular Filt Rate 24; Glucose 155 mg/dL (65-110); Potassium 4.7 mmol/L (3.4-5.0); Sodium 137 mmol/L (137-145)
--- NOTE | 2022-02-03 06:36 | PCRCNOTE ---
PATIENT REFUSED 0500 ABG.
[2022-02-03 08:28] LABS: Glucose Point of Care 183 mg/dl (65-105)
[2022-02-03] MEDS: methylPREDNISolone SOD SUCC 125 MG VIAL 60 MG IV PUSH (09:01)
[2022-02-03] MEDS: ENOXAPARIN 30 MG/0.3 ML SYRINGE SUB-Q (09:01)
[2022-02-03] MEDS: ASPIRIN 81 MG ENTERIC TABLET PO (09:02)
[2022-02-03] MEDS: carvediloL 25 MG TABLET PO ×2 (09:02→20:11)
[2022-02-03] MEDS: amLODIPine BESYLATE 5 MG TABLET 10 MG PO (09:03)
[2022-02-03] MEDS: FLUTICASONE/SALMETEROL 115-21 MCG INHALER 1 PUFF 2 PUFF INHALATION ×2 (09:47→22:01)
--- NOTE | 2022-02-03 10:52 | PM.IMPN ---
Progress Note: A&P Assessment and Plan (1) Acute respiratory failure with hypoxia and hypercarbia: Code(s): J96.01 - Acute respiratory failure with hypoxia; J96.02 - Acute respiratory failure with hypercapnia Status: Acute Assessment and Plan: Patient presents with shortness of breath and found to have acute respiratory failure. [place] multifactorial from COPD, CHF and/or PNA -Patient intubated on admission 01/31 -Treated with steroids, nebs, abx and Lasix. -RSV COVID and influenza negative -BCx NGTD -urine Legionella pneumococcal antigen and mycoplasma IgM pending Extubated 02/02/22 Continue bronchodilators Continue Rocephin and azithromycin Will stop steroids to see of this improves her anxiety. Humidify air and start nasal saline given the epistaxis resume lasix home dose (2) Pneumonia: Code(s): J18.9 - Pneumonia, unspecified organism Status: Acute Assessment and Plan: CXR showing diffuse bilateral infiltrates on admission. -sputum cx pending -BCx NGTD Contineu IV abx As above (3) COPD exacerbation: Code(s): J44.1 - Chronic obstructive pulmonary disease with (acute) exacerbation Status: Acute Assessment and Plan: Improved. No wheezing. -Continue neb treatments. -stop steroids As above (4) Type 2 diabetes mellitus: Code(s): E11.9 - Type 2 diabetes mellitus without complications Status: Acute Assessment and Plan: A1c 5.9. The patient's blood glucose was reviewed on 02/03 Glucose better Continue AccuCheks covering with sliding scale. Hypoglycemia protocol available as needed. stopping steroids should help. resume Lantus home dose. (5) Coronary artery disease: Code(s): I25.10 - Atherosclerotic heart disease of [place] coronary artery without angina pectoris Status: Acute Assessment and Plan: No complaints of chest pain Continue aspirin, statin and beta-louisa (6) Congestive heart failure: Code(s): I50.9 - Heart failure, unspecified Status: Acute Assessment and Plan: Elevated BNP and interstitial edema on chest x-ray suggest congestive heart failure She also has lower extremity edema Echo showing ? 1. Complete two-dimensional, color flow and Doppler transthoracic echocardiogram is performed. ? 2. Normal left ventricular size and contractility. ? 3. Grade 1 diastolic noncompliance. ? 4. Moderately calcified mitral valve annulus. ? 5. Sclerotic aortic valve which is not functionally stenotic. Lasix given prn Resume home lasix (7) Elevated serum creatinine: Code(s): R79.89 - Other specified abnormal findings of blood chemistry Status: Acute Assessment and Plan: Patient presented with elevated serum creatinine 2.2. -Baseline creatinine unknown but suspect patient has CKD as per suggested by her daughter -Normal renal ultrasound -urine electrolytes suggest renal disease and Normal CK -tolearted the prn lasix -Cr about the same -follow closely with adding back lasix Plan DVT prophylaxis -Lovenox Stress ulcer prophylaxis - PPI Nutrition - Diab diet Code Status - Full Code Subjective Date/time seen: 02/03/22 10:52 Interval history: 76yo female with COPD, CHF, CAD and DM here for shortness of breath and found to have acute respiratory failure. Still feels uncomfortable with legs shaking and also with abd 'jumping'. No abd pain. No CP or SOB. She is having epistaxis. No nausea. Does have restless leg syndrome. Has been on steroids in the past but not had these symptoms before. Does not wear O2 or NIV at home. Did not wear BiPAP last night. Exam Narrative: AF 98.3 110/79 92 20 91% 3L Gen - NARD Chest -distant breat sounds. CV - RRR S1/S2 with occasional extra beats; Tele showing no significant dysrhythmias. Abd - Soft, NT/ND, Positive BS - Ngo secured draining clear yellow urine Ext - bilat chronic venous stasis skin changes with left sh
--- NOTE | 2022-02-03 11:27 | PCPTNOTE ---
Attempted evaluation, but patient eating lunch will check on her after lunch.
[2022-02-03] MEDS: EUCERIN CREAM 120 GM JAR 1 APPLIC TOPICAL ×2 (12:17→16:31)
[2022-02-03] MEDS: FUROSEMIDE 20 MG TABLET PO (12:17)
[2022-02-03 12:39] LABS: Glucose Point of Care 368 mg/dl (65-105)
[2022-02-03] MEDS: INSULIN ASPART (*BKC) 100 UNITS/ML SUB-Q ×3 (12:52→21:44)
--- NOTE | 2022-02-03 14:48 | PC.NURSE ---
Pt has complaints of flutters in my stomach and tremors to arms and hands. Also feels nauseated. Message left with Dr. Sanchez.
[2022-02-03] MEDS: busPIRone HCL 2.5 MG TABLET PO (16:31)
[2022-02-03] MEDS: rOPINIRole HCL 1 MG TABLET PO (16:33)
[2022-02-03 16:34] LABS: Glucose Point of Care 342 mg/dl (65-105)
[2022-02-03] MEDS: traMADol HCL (*CRX) 25 MG TABLET PO (18:40)
[2022-02-03] MEDS: PROMETHAZINE HCL 25 MG TABLET PO (19:57)
[2022-02-03] MEDS: MINERAL OIL/WHITE PETROLATUM OINTMENT 1 APPLIC EACH EYE (20:01)
[2022-02-03] MEDS: cefTRIAXone 2 GM in SODIUM CHLORIDE 0.9% IV 100 ML 200 ML IVPB (20:02)
[2022-02-03] MEDS: INSULIN GLARGINE (*BKC) 100 UNITS/ML 8 UNITS SUB-Q (20:05)
[2022-02-03] MEDS: ATORVASTATIN 40 MG TABLET 80 MG PO (20:11)
[2022-02-03] MEDS: MELATONIN 5 MG TABLET 10 MG PO (20:11)
[2022-02-03] MEDS: busPIRone HCL 5 MG TABLET PO (20:11)
[2022-02-03 20:44] LABS: Glucose Point of Care 276 mg/dl (65-105)
[2022-02-04] VITALS (22 sets, daily range): BP systolic 132–187; BP diastolic 44–65; PULSE 70–99; RESP 12–20; TEMP 36.2–36.7; O2SAT 94–98
--- NOTE | 2022-02-04 02:30 | PCRCNOTE ---
pt is finally sleeping and is not to be woken up due to lack of sleep over the last couple days.
[2022-02-04 04:46] LABS: Hematocrit 30.6 % (37.0-47.0); Hemoglobin 10.1 g/dL (12.0-15.0); Mean Corpuscular Hemoglobin 34.5 pg (26-34); Mean Corpuscular Volume 104.4 fl (80-100); Mean Platelet Volume 11.4 fl (7.4-10.4); Platelet Count Result 177 k/mm3 (150-375); Red Blood Count 2.93 M/mm3 (4.2-5.4); Red Cell Distribution Width 12.4 % (11.5-14.5); White Blood Count 9.4 K/mm3 (4.5-10.0)
[2022-02-04 05:04] LABS: Alanine Aminotransferase 24 U/L (6-35); Albumin Level 3.1 g/dL (3.5-5.1); Alkaline Phosphatase 73 U/L (38-126); Anion Gap 4 mmol/L (8-16); Aspartate Amino Transferase 20 U/L (14-36); Bilirubin,Total 0.2 mg/dL (0.2-1.3); Blood Urea Nitrogen 61 mg/dL (7-17); Calcium 9.1 mg/dL (8.4-10.2); Carbon Dioxide 30 mmol/L (22-30); Chloride 97 mmol/L (98-107); Estimated CRCL calculation 21 ml/min; Estimated Glomerular Filt Rate 26; Glucose 159 mg/dL (65-110); Potassium 4.5 mmol/L (3.4-5.0); Sodium 131 mmol/L (137-145)
[2022-02-04 08:24] LABS: Glucose Point of Care 161 mg/dl (65-105)
[2022-02-04] MEDS: ASPIRIN 81 MG ENTERIC TABLET PO (08:41)
[2022-02-04] MEDS: amLODIPine BESYLATE 5 MG TABLET 10 MG PO (08:41)
[2022-02-04] MEDS: carvediloL 25 MG TABLET PO ×2 (08:41→20:10)
[2022-02-04] MEDS: busPIRone HCL 5 MG TABLET PO ×2 (08:41→20:10)
[2022-02-04] MEDS: rOPINIRole HCL 1 MG TABLET PO ×2 (08:42→17:31)
[2022-02-04] MEDS: ENOXAPARIN 30 MG/0.3 ML SYRINGE SUB-Q (08:42)
[2022-02-04] MEDS: FUROSEMIDE 20 MG TABLET PO (08:42)
[2022-02-04] MEDS: EUCERIN CREAM 120 GM JAR 1 APPLIC TOPICAL ×2 (08:44→17:35)
[2022-02-04] MEDS: ALBUTEROL SULFATE NEB 2.5 MG/3 ML INH 5 MG INHALATION ×3 (09:25→19:48)
[2022-02-04] MEDS: IPRATROPIUM BR 0.02% INH SOLN 0.5 MG/2.5 ML VIAL INHALATION ×3 (09:28→19:48)
[2022-02-04] MEDS: FLUTICASONE/SALMETEROL 115-21 MCG INHALER 1 PUFF 2 PUFF INHALATION ×2 (09:28→20:00)
[2022-02-04 11:53] LABS: Glucose Point of Care 255 mg/dl (65-105)
[2022-02-04] MEDS: INSULIN ASPART (*BKC) 100 UNITS/ML SUB-Q ×3 (13:20→20:09)
[2022-02-04 15:51] LABS: Triglycerides 324 mg/dL (<150)
[2022-02-04 16:37] LABS: Glucose Point of Care 237 mg/dl (65-105)
--- NOTE | 2022-02-04 18:18 | PM.IMPN ---
Progress Note: A&P Assessment and Plan (1) Acute respiratory failure with hypoxia and hypercarbia: Code(s): J96.01 - Acute respiratory failure with hypoxia; J96.02 - Acute respiratory failure with hypercapnia Status: Acute Assessment and Plan: Patient presents with shortness of breath and found to have acute respiratory failure. [place] multifactorial from COPD, CHF and/or PNA -Patient intubated on admission 01/31 -Treated with steroids, nebs, abx and Lasix. -RSV COVID and influenza negative -BCx NGTD -urine Legionella pneumococcal antigen and mycoplasma IgM pending Extubated 02/02/22 Sputum growing Staph aureus Continue bronchodilators Continue Rocephin but change Azithro to doxycycline Home O2 evaluation in the morning. (2) Pneumonia: Code(s): J18.9 - Pneumonia, unspecified organism Status: Acute Assessment and Plan: CXR showing diffuse bilateral infiltrates on admission. -sputum cx growing Staph aureus -BCx NGTD Continue IV Rocephin, add Doxycycline As above (3) COPD exacerbation: Code(s): J44.1 - Chronic obstructive pulmonary disease with (acute) exacerbation Status: Acute Assessment and Plan: Improved. No wheezing. -Continue neb treatments. -steroids stopped As above (4) Type 2 diabetes mellitus: Code(s): E11.9 - Type 2 diabetes mellitus without complications Status: Acute Assessment and Plan: A1c 5.9. The patient's blood glucose was reviewed on 02/04 Glucose 159 this morning Continue AccuCheks covering with sliding scale. Hypoglycemia protocol available as needed. continue Lantus (5) Coronary artery disease: Code(s): I25.10 - Atherosclerotic heart disease of [place] coronary artery without angina pectoris Status: Acute Assessment and Plan: No complaints of chest pain Continue aspirin, statin and beta-louisa (6) Congestive heart failure: Code(s): I50.9 - Heart failure, unspecified Status: Acute Assessment and Plan: Elevated BNP and interstitial edema on chest x-ray suggest congestive heart failure She also has lower extremity edema Echo showing ? 1. Complete two-dimensional, color flow and Doppler transthoracic echocardiogram is performed. ? 2. Normal left ventricular size and contractility. ? 3. Grade 1 diastolic noncompliance. ? 4. Moderately calcified mitral valve annulus. ? 5. Sclerotic aortic valve which is not functionally stenotic. Home Lasix resumed (7) Elevated serum creatinine: Code(s): R79.89 - Other specified abnormal findings of blood chemistry Status: Acute Assessment and Plan: Patient presented with elevated serum creatinine 2.2. -Baseline creatinine unknown but suspect patient has CKD as per suggested by her daughter -Normal renal ultrasound -urine electrolytes suggest renal disease and Normal CK -tolerating back on her home Lasix -Cr about the same -follow closely Plan DVT prophylaxis -Lovenox Stress ulcer prophylaxis - PPI Nutrition - Diab diet Code Status - Full Code Subjective Date/time seen: 02/04/22 18:18 Interval history: 76yo female with COPD, CHF, CAD and DM here for shortness of breath and found to have acute respiratory failure. No more leg shaking or stomach pain. She did have an episode of nausea and vomiting last evening but nothing since. She has been eating fine. Up walking the halls. She remains on 3 L with her baseline oxygen requirement of 2 L. Exam Narrative: AF 97.7 151/49 86 12 95% 3L Gen - NARD Chest -clear to auscultation bilaterally. CV - RRR S1/S2. Telemetry showing no significant dysrhythmias. Abd - Soft, NT/ND, Positive BS Ext - bilat chronic venous stasis skin changes; no edema Psych - anxious mood Skin - Warm and dry Objective Data Vital Signs Vital Signs: Vital Signs - 24 hr 02/03/22 20:11 02/03/22 20:00 02/03/22 22:07 Temperature 97.6 F Pulse Rate 93 105
[2022-02-04] MEDS: INSULIN GLARGINE (*BKC) 100 UNITS/ML 8 UNITS SUB-Q (20:09)
[2022-02-04] MEDS: MELATONIN 5 MG TABLET 10 MG PO (20:10)
[2022-02-04] MEDS: DOXYCYCLINE HYCLATE 100 MG TABLET PO (20:10)
[2022-02-04] MEDS: cefTRIAXone 2 GM in SODIUM CHLORIDE 0.9% IV 100 ML 200 ML IVPB (20:10)
[2022-02-04] MEDS: ATORVASTATIN 40 MG TABLET 80 MG PO (20:10)
[2022-02-04 20:19] LABS: Glucose Point of Care 258 mg/dl (65-105)
[2022-02-04] MEDS: ACETAMINOPHEN 325 MG TABLET 650 MG PO (20:20)
[2022-02-05] VITALS (21 sets, daily range): BP systolic 134–170; BP diastolic 55–62; PULSE 67–109; RESP 18–20; TEMP 36.4–36.6; O2SAT 87–101
[2022-02-05] MEDS: IPRATROPIUM BR 0.02% INH SOLN 0.5 MG/2.5 ML VIAL INHALATION ×3 (01:31→14:11)
[2022-02-05] MEDS: ALBUTEROL SULFATE NEB 2.5 MG/3 ML INH 5 MG INHALATION ×3 (01:31→14:11)
[2022-02-05] MEDS: PROMETHAZINE HCL 25 MG TABLET PO ×2 (01:54→06:09)
[2022-02-05 04:52] LABS: Anion Gap 2 mmol/L (8-16); Blood Urea Nitrogen 61 mg/dL (7-17); Calcium 8.6 mg/dL (8.4-10.2); Carbon Dioxide 32 mmol/L (22-30); Chloride 98 mmol/L (98-107); Estimated CRCL calculation 21 ml/min; Estimated Glomerular Filt Rate 26; Glucose 143 mg/dL (65-110); Potassium 4.1 mmol/L (3.4-5.0); Sodium 132 mmol/L (137-145)
[2022-02-05] MEDS: ACETAMINOPHEN 325 MG TABLET 650 MG PO (06:08)
[2022-02-05] MEDS: FLUTICASONE/SALMETEROL 115-21 MCG INHALER 1 PUFF 2 PUFF INHALATION (09:00)
[2022-02-05] MEDS: carvediloL 25 MG TABLET PO (09:22)
[2022-02-05] MEDS: rOPINIRole HCL 1 MG TABLET PO (09:22)
[2022-02-05] MEDS: busPIRone HCL 5 MG TABLET PO (09:22)
[2022-02-05] MEDS: FUROSEMIDE 20 MG TABLET PO (09:22)
[2022-02-05] MEDS: amLODIPine BESYLATE 5 MG TABLET 10 MG PO (09:22)
[2022-02-05] MEDS: DOXYCYCLINE HYCLATE 100 MG TABLET PO (09:22)
[2022-02-05] MEDS: ASPIRIN 81 MG ENTERIC TABLET PO (09:23)
[2022-02-05] MEDS: SALINE 0.65% NAS SOLN 44 ML BTL 1 SPRAY NASAL (09:23)
[2022-02-05] MEDS: ENOXAPARIN 30 MG/0.3 ML SYRINGE SUB-Q (09:24)
[2022-02-05] MEDS: EUCERIN CREAM 454 GM JAR 1 APPLIC TOPICAL (09:26)
[2022-02-05] MEDS: INSULIN ASPART (*BKC) 100 UNITS/ML SUB-Q (12:03)
[2022-02-05 12:20] LABS: Glucose Point of Care 230 mg/dl (65-105)
--- NOTE | 2022-02-05 14:51 | HOMEO2EVAL ---
Evaluation was performed at [facility] Home Oxygen Evaluation RC: Home Oxygen (O2) Evaluation Start: 02/04/22 18:28 Freq: ONCE Status: Active Protocol: RPE Activity Type Activity Date Activity User E-sign Co-sign Detail Recorded Client Recorded Date Recorded By Document 02/05/22 13:40 SHAMAR [email or web address] 02/05/22 14:51 SHAMAR Document 02/05/22 13:42 SHAMAR [email or web address] 02/05/22 14:51 SHAMAR Document 02/05/22 13:45 SHAMAR [email or web address] 02/05/22 14:51 SHAMAR Document 02/05/22 13:50 SHAMAR [email or web address] 02/05/22 14:51 SHAMAR 02/05/22 02/05/22 02/05/22 13:40 13:42 13:45 Home O2 Evaluation [Oxygen] -Test Phase Resting Resting Exercise -Oxygen Delivery Room Air Nasal Cannula Nasal Cannula -Oxygen Flow Rate (L/min) 2 2 [Pulse Oximetry] -Pulse Oximetry (90-100 %) 87 L 93 90 [Pulse Rate] -Pulse Rate (60-100 beats/min) 109 H [Comments] -Home Oxygen Evaluation Comments PT WEARS 02 AT 2 L REST AND ACTIVITY. PT HAS [facility] [Charges] -Treatment Charges O2 Evaluation - Inpatient 02/05/22 13:50 Home O2 Evaluation [Oxygen] -Test Phase Resting -Oxygen Delivery Room Air -Oxygen Flow Rate (L/min) [Pulse Oximetry] -Pulse Oximetry (90-100 %) 92 [Pulse Rate] -Pulse Rate (60-100 beats/min) [Comments] -Home Oxygen Evaluation Comments [Charges] -Treatment Charges
--- NOTE | 2022-02-05 14:52 | PCRCNOTE ---
HOME O2 EVAL DONE, PT REQUIRES 2 L REST AND ACTIVITY. SHE HAS HOME O2 WITH [facility]. DAUGHTER HAS A TANK FOR TRANSPORT HOME IN HER CAR. NO ADDTL NEEDS
--- NOTE | 2022-02-05 16:41 | PM.DS ---
DS: Admitting Diagnosis Discharge Date 02/06/12 Admitting Diagnosis Shortness of breath DS: Discharge Diagnosis Discharge Diagnosis (1) Acute respiratory failure with hypoxia and hypercarbia: Code(s): J96.01 - Acute respiratory failure with hypoxia; J96.02 - Acute respiratory failure with hypercapnia Status: Acute (2) Pneumonia: Code(s): J18.9 - Pneumonia, unspecified organism Status: Acute (3) COPD exacerbation: Code(s): J44.1 - Chronic obstructive pulmonary disease with (acute) exacerbation Status: Acute (4) Type 2 diabetes mellitus: Code(s): E11.9 - Type 2 diabetes mellitus without complications Status: Acute (5) Coronary artery disease: Code(s): I25.10 - Atherosclerotic heart disease of [place] coronary artery without angina pectoris Status: Acute (6) Congestive heart failure: Code(s): I50.9 - Heart failure, unspecified Status: Acute (7) Elevated serum creatinine: Code(s): R79.89 - Other specified abnormal findings of blood chemistry Status: Acute DS: Summary Hospital Course Reason for hospitalization: 76yo female with COPD, CHF, CAD and DM here for shortness of breath and found to have acute respiratory failure. Please see H&P for details. Hospital Course: Patient presents with shortness of breath and found to have acute respiratory failure. [place] multifactorial from COPD, CHF and/or PNA. Patient intubated on admission 01/31 and treated with steroids, nebs, abx and Lasix. RSV, COVID and influenza negative. BCx NGTD. She did well and was able to extubated 02/02. Sputum growing Staph aureus that was sensitive to Vancomycin only so plan to discharge home with Vyzox. [place] she had a COPD exacerbation treated with steroids. She ws having anxiety with the steroid so these were stopped. Elevated BNP and interstitial edema on chest x-ray suggest acute on chronic diastotlic congestive heart failure She also has lower extremity edema. Echo showingNormal LV size and contractility with grade 1 diastolic on compliance. Patient presented with elevated serum creatinine 2.2. Baseline creatinine unknown but suspect patient has CKD as per suggested by her daughter. Normal renal ultrasound. She tolerated resuming her home Lasix. Patient clinical improvement. We will wean her oxygen down to baseline 2 L. Discussed side effects of the linezolid and that it can't be taken with tramadol. She voices understanding. she overall did well was able be discharged home on 02/05/2022 Status at Discharge Cognitive/behavioral status at discharge: stable Time Spent with Patient Time attestation: Total time spent providing and/or coordinating discharge services: 35 minutes Time spent: Greater than 30 minutes Exam Narrative: AF 97.6 158/55 88 18 98% ra Gen - NARD Chest - few scattereed rhonchi o/w distant, clear BS. nml RR CV - RRR S1/S2 Abd - Soft, NT/ND, Positive BS Ext - trace pedal edema Psych - Nml mood and affect Skin - Warm and dry DS: Data Data Completed and Pending Labs on day of discharge: Labs from last 24 hours 02/05/22 02/05/22 02/04/22 11:46 04:15 19:51 Sodium 132 L Potassium 4.1 Chloride 98 Carbon Dioxide 32 H Anion Gap 2 L BUN 61 H Creatinine 1.90 H Estim Creat Clear Calc 21 Estimated GFR 26 L Glucose 143 H POC Capillary Glucose 230 H 258 H Calcium 8.6 Preliminary micro results at discharge 02/01/22 00:35 Blood Culture - Preliminary Blood 02/01/22 00:35 Blood Culture - Preliminary Blood 01/31/22 16:51 Blood Culture - Preliminary Blood 01/31/22 16:51 Blood Culture - Preliminary Blood Discharge Plan Discharge Attending physician on discharge: Bradly Sanchez Discharging Clinician: Bradly Sanchez Anticipated Discharge Date/Time: 02/05/22 16:52 Patient Disposition: Home, Self-Care Activity: as tolerated Diet: diabetic Discharg
[2022-02-05 17:05] LABS: Glucose Point of Care 126 mg/dl (65-105)
[2022-02-05 18:02] LABS: Glucose Point of Care 163 mg/dl (65-105)
[2022-02-05 18:08] LABS: Legionella pneumophila Ag Ur Not Detected (Not Detected)
[2022-02-06 18:05] LABS: Mycoplasma IgM Antibody Titer 191 U/mL (<770)
== END 2022-02-05 17:16 | disposition home or self-care (01) | DRG 208 ==
LOC: ANHED 17:32 → ANHICU 19:32 → ANHIMU 02-02 23:05
PROVIDERS: Internal Medicine; Physician Assistant; Admitting Provider Student in an Organized Health Care Education/Training Program; Emergency Provider Emergency Medicine; Visit Provider Internal Medicine
DX: J18.9 Pneumonia, unspecified organism (principal); I50.33 Acute on chronic diastolic (congestive) heart failure; J96.21 Acute and chronic respiratory failure with hypoxia; J96.22 Acute and chronic respiratory failure with hypercapnia; J44.0 Chronic obstructive pulmonary disease with (acute) lower respiratory infection; J44.1 Chronic obstructive pulmonary disease with (acute) exacerbation; I13.0 Hypertensive heart and chronic kidney disease with heart failure and stage 1 through stage 4 chronic kidney disease, or unspecified chronic kidney disease; E11.22 Type 2 diabetes mellitus with diabetic chronic kidney disease; N18.9 Chronic kidney disease, unspecified; B95.62 Methicillin resistant Staphylococcus aureus infection as the cause of diseases classified elsewhere; Z20.822 Contact with and (suspected) exposure to COVID-19; I25.10 Atherosclerotic heart disease of native coronary artery without angina pectoris; E78.5 Hyperlipidemia, unspecified; F41.9 Anxiety disorder, unspecified; D53.9 Nutritional anemia, unspecified; E78.1 Pure hyperglyceridemia; I73.9 Peripheral vascular disease, unspecified; Z96.641 Presence of right artificial hip joint; Z95.5 Presence of coronary angioplasty implant and graft; F17.210 Nicotine dependence, cigarettes, uncomplicated
CPT/HCPCS: 36415; 36600; 71045; 76775; 80048; 80053; 81001; 82375; 82550; 82570; 82607; 82728; 82746; 82805; 82948; 83036; 83050; 83540; 83550; 83605; 83735; 83880; 84145; 84300; 84439; 84443; 84478; 84480; 84484; 85025; 85027; 85610; 85730; 86140; 86738; 87040; 87070; 87147; 87181; 87186; 87205; 87449; 87637; 87899; 93005; 93306; 93970; 94002; 94003; 94618; 94640; 96365; 97116; 97161; 97165; 99285; A9270; C1751; J0360; J0456; J0610; J0696; J1650; J1815; J1940; J2250; J2704; J2930; J3010; J7030

== ENCOUNTER 2022-02-26 23:36 | Inpatient (IN) | payer MEDICARE, SELFPAY ==
--- NOTE | ~2022-02-26 | US_ITS ---
EXAMINATION:US venous doppler LE BI INDICATION:Lower extremity swelling TECHNIQUE: Multiple grayscale, color flow and Doppler images of the bilateral lower extremity deep ve nous systems were obtained and reviewed. COMPARISON:No prior studies for comparison. FINDINGS: The common femoral, superficial femoral and popliteal veins demonstrate normal respiratory variation, augmentation and compressibility. Color flow is also seen within the posterior tibial, pe roneal, greater saphenous and profunda veins. There is a Bernal's cyst in the left popliteal fossa. IMPRESSION: 1: No lower extremity deep venous thrombosis. Reviewed, dictated and finalized at location A. [employer] FINISHING MACHINE OPERATOR
--- NOTE | ~2022-02-26 | XR_ITS ---
Portable chest x-ray Comparison: 03/01/2022 Clinical History: Respiratory failure Findings: Endotracheal tube and NG tube are in satisfactory positions. Minimal right pleural effusio n present. Probable mild pulmonary edema pattern. Cardiomediastinal silhouette is stable. Bones and soft tissues are unremarkable. Impression: Mild pulmonary edema pattern with small right pleural effusion. Support tubes, as above. Reviewed, dictated and finalized at [facility]. RUNNER Impression: Mild pulmonary edema pattern with small right pleural effusion. Support tubes, as above.
--- NOTE | ~2022-02-26 | CT_ITS ---
Non-contrast Head CT History: Altered mental status Technique: Axial non-contrast imaging of the brain was performed. Dose reduction technique was used on this scan by utilizing automated exposure control and iterative reconstruction technique. The dose -length product (DLP) was 1210.67 mGy-cm. Findings: There is no evidence of intracranial hemorrhage, mass lesion, or acute infarct. Brain par enchyma appears normal. The ventricles and subarachnoid spaces are normal in size. The calvarium ap pears normal. The visualized paranasal sinuses and mastoid air cells are clear. Impression: No significant abnormality seen. Reviewed, dictated and finalized at location . 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
--- NOTE | ~2022-02-26 | XR_ITS ---
Portable chest x-ray Comparison: 02/02/2022 Clinical History: Altered mental status, cardiac arrest Findings: Endotracheal tube and NG tube are in satisfactory positions. Lungs are clear, without foca l consolidation or pleural effusion. Cardiomediastinal silhouette is stable. Bones and soft tissues are unremarkable. Impression: Clear lungs. Support tubes, as above. Reviewed, dictated and finalized at location M. GER CLIENT SERVICE Impression: Clear lungs. Support tubes, as above.
--- NOTE | ~2022-02-26 | CT_ITS ---
EXAMINATION: CT brain wo con DATE: 03/01/2022 12:50 INDICATION: Encephalopathy. TECHNIQUE: Computed tomography (CT) of the head was performed without intravenous contrast. The mA wa s adjusted according to patient size. Iterative reconstruction technique was employed. The dose-lengt h product was 1210.67 mGy-cm. COMPARISON: Head CT 02/27/2022 FINDINGS: Motion artifact is noted. There are scattered areas of low attenuation in the cerebral whit e matter. There is no intracranial hemorrhage, acute infarction, or abnormal intracranial mass lesion . The ventricles are normal in size. There are likely changes of ocular lens replacement surgeries. T here is mild mucosal thickening in the paranasal sinuses. The mastoid air cells are normal. IMPRESSION: 1. Sensitivity is moderately decreased by motion artifact. 2. Stable moderate nonspecific cerebral white matter disease, which likely represents chronic small v essel ischemic disease. Reviewed, dictated and finalized at location A. UTER NETWORK ENGINEER IMPRESSION: 1. Sensitivity is moderately decreased by motion artifact. 2. Stable moderate nonspecific cerebral white matter disease, which likely repr esents chronic small vessel ischemic disease.
--- NOTE | ~2022-02-26 | XR_ITS ---
Portable chest x-ray Comparison: 02/28/2022 Clinical History: Respiratory failure Findings: Probable minimal pleural effusions. There is mild bilateral hazy/interstitial disease. Ca rdiomediastinal silhouette is stable. Bones and soft tissues are unremarkable. Impression: Probable minimal pleural effusions. Mild pulmonary edema versus possibly chronic interstitial disease. Reviewed, dictated and finalized at [facility]. GER AGRICULTURAL Impression: Probable minimal pleural effusions. Mild pulmonary edema versus possibly chronic interstitial disease.
--- NOTE | ~2022-02-26 | XR_ITS ---
Portable chest x-ray Comparison: 02/28/2022 at 5:17 AM Clinical History: Tube placement Findings: Endotracheal tube and NG tube are in satisfactory positions. Small right pleural effusion present with mild pulmonary edema pattern. Cardiomediastinal silhouette is stable. Bones and soft ti ssues are unremarkable. Impression: Support tubes, as above. Small right pleural effusion with mild pulmonary edema pattern. Reviewed, dictated and finalized at location . UIT CLERK Impression: Support tubes, as above. Small right pleural effusion with mild pulmonary edema pattern.
--- NOTE | ~2022-02-26 | XR_ITS ---
Portable chest x-ray Comparison: 02/26/2022 Clinical History: Respiratory failure Findings: Endotracheal tube and NG tube are in satisfactory positions. There is probable mild diffus e interstitial prominence. Cardiomediastinal silhouette is stable. Bones and soft tissues are unrema rkable. Impression: Probable mild diffuse interstitial pulmonary edema. Support tubes, as above. Reviewed, dictated and finalized at location . LLIGENCE CLERK Impression: Probable mild diffuse interstitial pulmonary edema. Support tubes, as above.
[2022-02-26 23:40] VITALS: BP 73/50; PULSE 64; RESP 17; O2SAT 100
--- NOTE | 2022-02-26 23:41 | ED.GENADULT ---
HPI - General Adult General Chief complaint: Cardiac Arrest/CPR Stated complaint: cardiac arrest Source: EMS and RN notes reviewed History of Present Illness HPI narrative: Patient presents emergency department from moving home via EMS for respiratory arrest. History is per EMS the patient had called EMS stating that she had felt short of breath. While on the phone with EMS the patient went unresponsive. When they arrived they found patient to have agonal breathing and subsequently the patient went into cardiac arrest. The patient went into PEA with 4 rounds of epi given atropine and was intubated in the field with a 6 tube the patient subsequently regained a pulse to ED. The patient is currently intubated in room currently unresponsive Related Data Home Medications Medication Instructions Recorded Confirmed aspirin 81 mg tablet,delayed 81 mg PO DAILY 01/31/22 01/31/22 release atorvastatin 80 mg tablet 80 mg PO HS 01/31/22 01/31/22 carvedilol 25 mg tablet 25 mg PO BID 01/31/22 01/31/22 cholecalciferol (vitamin D3) 25 25 mcg PO DAILY 01/31/22 01/31/22 mcg (1,000 unit) capsule coenzyme Q10 50 mg tablet 50 mg PO DAILY 01/31/22 01/31/22 ferrous sulfate 142 mg (45 mg 142 mg PO DAILY 01/31/22 01/31/22 iron) tablet,extended release fluticasone 250 mcg-salmeterol 50 1 inh inhalation Q12H 01/31/22 01/31/22 mcg/dose blistr powdr for inhalation furosemide 20 mg tablet 20 mg PO DAILY 01/31/22 01/31/22 glipizide 2.5 mg tablet, extended 2.5 mg PO DAILY 01/31/22 01/31/22 release 24 hr insulin glargine 100 unit/mL (3 10 unit subcut HS 01/31/22 01/31/22 mL) subcutaneous pen (Lantus Solostar U-100 Insulin) losartan 100 mg tablet 100 mg PO DAILY 01/31/22 01/31/22 ropinirole 1 mg tablet 1 mg PO BID 01/31/22 01/31/22 tramadol 50 mg tablet 50 mg PO Q8H PRN Shortness Of 01/31/22 01/31/22 Breath Or Wheezing Allergies Allergy/AdvReac Type Severity Reaction Status Date / Time PIO Inhibitors Allergy Unknown Verified 08/12/18 05:34 clarithromycin Allergy Unknown Verified 08/12/18 05:34 clonidine Allergy Unknown Verified 08/12/18 05:34 codeine Allergy Unknown Verified 08/12/18 05:34 Iodinated Contrast Media Allergy Unknown Verified 08/12/18 05:34 Contrast Media Allergy Unknown Uncoded 08/12/18 05:34 Review of Systems Review of Systems: ROS unobtainable: Yes unobtainable due to endotracheal tube PMFSH Past Medical History Medical History Anxiety Chronic obstructive pulmonary disease Coronary artery disease Dyslipidemia Hypertension Insulin dependent diabetes mellitus Pneumonia Tobacco dependence Surgical History Surgical History History of cardiac catheterization History of heart artery stent History of right hip replacement Family History Family History Other Unknown family medical history Social History Social History Social History: Surrogate medical decision maker: Carol Cha, daughter. Code status: Full code. Smoking status: Current every day smoker Alcohol intake: former Substance use: never Spiritual care concerns: No Exam Narrative: APPEARANCE: Unresponsive laying in bed EYES: PERRL HEENT: Normocephalic, atraumatic, orotracheal tube present RESPIRATORY: No respiratory distress Clear to auscultation bilaterally with no rhonchi wheezing or rales. CARDIOVASCULAR: Regular rate and rhythm without murmurs rubs or gallops. ABDOMINAL: Soft, nontender, nondistended, no rebound or guarding MUSCULOSKELETAl: No clubbing, cyanosis or edema. NEURO: Unresponsive laying in bed, nonverbal SKIN:: Warm, dry. No rashes lesions or abrasions Course Course Emergency Course: Reviewed old records the patient was seen for similar in January 2022 she h
[2022-02-26] MEDS: SODIUM CHLORIDE 0.9% IV 1,000 ML 999 ML IV CONT (23:48)
[2022-02-26 23:51] VITALS: PULSE 61
[2022-02-26 23:51] LABS: Glucose Point of Care 156 mg/dl (65-105)
[2022-02-26 23:51] LABS: Alveolar/Arterial O2 Gradient 97.1 mmHg; Carboxyhemoglobin 3.2 % THb (0-2.0); Fractional Inspired Oxygen 100 %; HCO3 ABG 19.6 mEq/l (22.0-26.0); Methemoglobin ABG 0.2 %THb (0-1.5); Oxygen Content ABG 14.2 %vol (16.0-22.0); Oxygen Saturation ABG 99.8 % (95.0-100.0); Oxyhemoglobin 95.3 % THb (90.0-100.0); PO2 ABG 551.7 mmHg (80.0-100.0); PO2 FiO2 Ratio Arterial Blood 5.52 %; Reduced Hemoglobin 1.3 %THb (0-5.0); Total Hemoglobin 9.4 g/dL (12.0-18.0)
[2022-02-26 23:53] LABS: Device VENTILATOR; Modified Allen's Test Unable to perform; PCO2 ABG 64.2 mmHg (35.0-45.0); Site Drawn RIGHT BRACHIAL; pH ABG 7.102 (7.350-7.450)
[2022-02-26 23:54] LABS: Arterial Blood Gas PEEP 5 cmH2O; Arterial Blood Gas Tidal Volume 350 ml; Arterial Blood Gas Vent Mode CMV; Arterial Blood Gas Ventilator rate 20 /MIN
[2022-02-26 23:56] VITALS: PULSE 62; O2SAT 100
[2022-02-27] VITALS (54 sets, daily range): BP systolic 71–210; BP diastolic 36–95; PULSE 81–120; RESP 17–33; TEMP 36.6–37.2; O2SAT 20–100; BMI 37.3
[2022-02-27 00:01] LABS: Add Urine Microscopic? YES; Appearance Urine Clear (Clear); Bilirubin Urine Negative (Negative); Blood Urine Negative (Negative); Color Urine Yellow (Yellow); Glucose Urine UA Trace mg/dL (Negative); Ketones Urine Negative (Negative); Leukocyte Esterase Ur Negative LEU/UL (Negative); Nitrate Urine Negative (Negative); Protein Urine 3+ mg/dL (Negative); Urobilinogen Urine 0.2 mg/dL (<2.0)
[2022-02-27 00:06] LABS: Bacteria Urine Trace /hpf; Mucus Urine Rare /lpf; RBC Urine 0-2 /hpf (0-2); Squamous Epithelial Cell Urine Rare /hpf (Few); WBC Urine 0-3 /hpf
[2022-02-27] MEDS: SODIUM CHLORIDE 0.9% IV 1,000 ML 999 ML IV CONT ×2 (00:09→00:34)
[2022-02-27 00:12] LABS: Basophils Percent Auto 0.3 % (0.2-1.2); Eosinophils Absolute Auto 0.2 K/mm3 (0-0.3); Eosinophils Percent Auto 2.2 % (0-4.4); Hemoglobin 9.3 g/dL (12.0-15.0); Immature Granulocyte Absolute 0.22 K/mm3 (0.00-0.031); Lymphocytes Absolute Auto 3.97 K/mm3 (0.9-3.2); Lymphocytes Percent Auto 36.4 % (18.3-44.2); Mean Corpuscular Hemoglobin 34.4 pg (26-34); Mean Corpuscular Volume 114.8 fl (80-100); Mean Platelet Volume 10.6 fl (7.4-10.4); Monocytes Absolute Auto 0.7 K/mm3 (0.1-0.6); Neutrophils Absolute Auto 5.8 K/mm3 (1.3-6.7); Neutrophils Percent Auto 53.1 % (45.5-73.1); Nucleated Red Blood Cells Perc 0.2 % (0.0-0.2); Platelet Count Result 312 k/mm3 (150-375); White Blood Count 10.9 K/mm3 (4.5-10.0)
[2022-02-27 00:17] LABS: INR 1.4
--- NOTE | 2022-02-27 00:17 | ECG_ITS ---
Measurements Intervals [place] Rate: 78 P: 72 RI: 174 QRS: 104 QRSD: 152 T: 56 QT: 416 QTc: 476 Interpretive Statements SINUS RHYTHM RIGHT AXIS DEVIATION RIGHT BUNDLE BRANCH BLOCK ABNORMAL ECG COMPARED TO ECG 01/31/2022 16:30:16 RIGHT BUNDLE-BRANCH BLOCK NOW PRESENT Electronically Signed On 02-27-2022 6:40:25 LITURGICAL MUSIC DIRECTOR by Massimo Gtz D.O.
[2022-02-27 00:18] LABS: Albumin Level 3.2 g/dL (3.5-5.1); Alkaline Phosphatase 135 U/L (38-126); Anion Gap 12 mmol/L (8-16); Aspartate Amino Transferase 124 U/L (14-36); Bilirubin,Total 0.2 mg/dL (0.2-1.3); Blood Urea Nitrogen 40 mg/dL (7-17); Carbon Dioxide 20 mmol/L (22-30); Chloride 101 mmol/L (98-107); Estimated CRCL calculation 15 ml/min; Estimated Glomerular Filt Rate 14; Glucose 210 mg/dL (65-110); Magnesium 2.6 mg/dL (1.6-2.3); Partial Thromboplastin Time 31.5 SECONDS (22.3-36.8); Potassium 5.3 mmol/L (3.4-5.0); Sodium 133 mmol/L (137-145)
[2022-02-27 00:20] LABS: Lactic Acid Reflex 6.7 mmol/L (0.7-2.0)
[2022-02-27 00:26] LABS: NT Pro B Type Natriuretic Pept 795 pg/mL (5-100); Troponin I < 0.012 ng/mL (0.000-0.034)
[2022-02-27 00:32] LABS: Alanine Aminotransferase 85 U/L (6-35)
[2022-02-27 00:41] LABS: Macrocytosis 1+ (NORMAL)
[2022-02-27 00:42] LABS: Burr Cells 1+ (NORMAL); Crenated RBC 1+ (NORMAL); Schistocytes None Seen (NORMAL)
[2022-02-27 00:43] LABS: Platelet Estimate Adequate (Adequate)
[2022-02-27 00:52] LABS: Influenza A QL RT-PCR Negative (Negative); Influenza B QL RT-PCR Negative (Negative); RSV RNA, RT-PCR Negative (Negative); SARS-CoV-2 RNA PCR Negative
--- NOTE | 2022-02-27 01:55 | PM.IMHP ---
H&P: HPI History of Present Illness Date/Time: 02/27/22 01:55 Chief Complaint: Dyspnea Narrative: Patient is a 76-year-old female past medical history of COPD, diastolic congestive heart failure, CAD, type 2 diabetes presents to the ED by EMS after cardiac arrest at home. Of note patient was recently hospitalized here from 01/31/22-02/05/22. During that hospitalization she presented with acute respiratory failure and was intubated on admission. She is found to have Staph aureus in her sputum that was sensitive to vancomycin and she was discharged with Zyvox. She also had a COPD exacerbation which was treated with steroids. She was discharged with prescription of linezolid and albuterol. Since that she has been at home. This current episode patient had complained of dyspnea and called EMS. When EMS arrived they saw patient becoming agonal and upon becoming unresponsive they started CPR. She was intubated the field and completed 4 rounds of epinephrine to achieve ROSC. She came to [facility] for further treatment. Discussed with daughter bedside. Patient apparently was acting her normal self at 10:46 p.m. when talking to family making jokes with no signs of distress. And then all of a sudden, within 10 minutes she became anxious and dyspneic and called the EMS. In the ED: Lactate elevated 2.7, BNP 795, troponin negative, COVID negative, RSV negative, flu negative, UA negative, potassium elevated 5.3, creatinine elevated 3.2 ABG shows pH 7.1/pCO2 64/PO2 551 this is on ventilator. Cardiac arrest is likely secondary to acute hypercapnic and hypoxic respiratory failure. Patient being admitted to the ICU for post cardiac arrest. Review of Systems Review of Systems: Unable to obtain patient intubated [facility] Past Medical History Medical History Anxiety Chronic obstructive pulmonary disease Coronary artery disease Dyslipidemia Hypertension Insulin dependent diabetes mellitus Pneumonia Tobacco dependence Surgical History Surgical History History of cardiac catheterization History of heart artery stent History of right hip replacement Family History Family History Other Unknown family medical history Social History Social History Social History: Surrogate medical decision maker: Carol Cha, daughter. Code status: Full code. Smoking status: Current every day smoker Alcohol intake: former Substance use: never Spiritual care concerns: No Meds Home Medications and Allergies Home Medications Medication Instructions Recorded Confirmed Type aspirin 81 mg tablet,delayed 81 mg PO DAILY 01/31/22 01/31/22 History release atorvastatin 80 mg tablet 80 mg PO HS 01/31/22 01/31/22 History carvedilol 25 mg tablet 25 mg PO BID 01/31/22 01/31/22 History cholecalciferol (vitamin D3) 25 25 mcg PO DAILY 01/31/22 01/31/22 History mcg (1,000 unit) capsule coenzyme Q10 50 mg tablet 50 mg PO DAILY 01/31/22 01/31/22 History ferrous sulfate 142 mg (45 mg 142 mg PO DAILY 01/31/22 01/31/22 History iron) tablet,extended release fluticasone 250 mcg-salmeterol 50 1 inh inhalation Q12H 01/31/22 01/31/22 History mcg/dose blistr powdr for inhalation furosemide 20 mg tablet 20 mg PO DAILY 01/31/22 01/31/22 History glipizide 2.5 mg tablet, extended 2.5 mg PO DAILY 01/31/22 01/31/22 History release 24 hr insulin glargine 100 unit/mL (3 10 unit subcut HS 01/31/22 01/31/22 History mL) subcutaneous pen (Lantus Solostar U-100 Insulin) losartan 100 mg tablet 100 mg PO DAILY 01/31/22 01/31/22 History ropinirole 1 mg tablet 1 mg PO BID 01/31/22 01/31/22 History tramadol 50 mg tablet 50 mg PO Q8H PRN Shortness Of 01/31/22 01/31/22 History Breath Or Wheezing albutero
[2022-02-27] MEDS: MIDAZOLAM 100MG/NS 100ML(*CRX) 100 MG/100 ML BAG IV CONT (02:16)
[2022-02-27] MEDS: FENTANYL 2,500MCG/NS250ML(*CRX 2,500 MCG/250 ML BAG IV CONT (02:17)
[2022-02-27] MEDS: methylPREDNISolone SOD SUCC 125 MG VIAL IV PUSH (02:59)
[2022-02-27 03:02] LABS: Reflex Lactic Acid Yes or No Add Lactic
--- NOTE | 2022-02-27 04:01 | ADMGEN ---
This patient, Aleida King, was admitted to Intensive Care Unit-10. Patient/family oriented to hospital policies and general routines including ID bracelet, bed and alarms, visiting hours, pain management, procedures, bathroom and other care routines, personal items, smoking policy, room service/diet, and visiting hours. Information on how to activate the Rapid Response Team has been discussed. Patient/Family are encouraged to report perceived risks to care and to ask questions if they do not understand what they are told or what they should do.
[2022-02-27] MEDS: SODIUM CHLORIDE 0.9% IV 1,000 ML 80 ML IV CONT ×2 (04:34→13:32)
[2022-02-27 05:28] LABS: Lactic Acid 0.8 mmol/L (0.7-2.0)
[2022-02-27 05:40] LABS: Troponin I 0.023 ng/mL (0.000-0.034)
[2022-02-27 05:55] LABS: Alveolar/Arterial O2 Gradient 157.4 mmHg; Carboxyhemoglobin 0.2 % THb (0-2.0); Device VENTILATOR; Fractional Inspired Oxygen 40 %; HCO3 ABG 23.2 mEq/l (22.0-26.0); Methemoglobin ABG 0.3 %THb (0-1.5); Modified Allen's Test Unable to perform; Oxygen Content ABG 13.2 %vol (16.0-22.0); Oxygen Saturation ABG 93.5 % (95.0-100.0); Oxyhemoglobin 92.1 % THb (90.0-100.0); PCO2 ABG 46.9 mmHg (35.0-45.0); PO2 ABG 73.9 mmHg (80.0-100.0); PO2 FiO2 Ratio Arterial Blood 1.85 %; Reduced Hemoglobin 7.4 %THb (0-5.0); Site Drawn RIGHT BRACHIAL; Total Hemoglobin 10.1 g/dL (12.0-18.0); pH ABG 7.313 (7.350-7.450)
[2022-02-27 05:56] LABS: Arterial Blood Gas PEEP 5 cmH2O; Arterial Blood Gas Tidal Volume 350 ml; Arterial Blood Gas Vent Mode CMV; Arterial Blood Gas Ventilator rate 20 /MIN
[2022-02-27 06:58] LABS: Hematocrit 26.1 % (37.0-47.0); Hemoglobin 8.2 g/dL (12.0-15.0); Mean Corpuscular HGB Conc 31.4 g/dl (32-36); Mean Corpuscular Hemoglobin 34.9 pg (26-34); Mean Corpuscular Volume 111.1 fl (80-100); Mean Platelet Volume 10.9 fl (7.4-10.4); Platelet Count Result 219 k/mm3 (150-375); Red Blood Count 2.35 M/mm3 (4.2-5.4); Red Cell Distribution Width 13.4 % (11.5-14.5); White Blood Count 10.8 K/mm3 (4.5-10.0)
[2022-02-27 07:02] LABS: Alanine Aminotransferase 108 U/L (6-35); Albumin Level 2.8 g/dL (3.5-5.1); Alkaline Phosphatase 157 U/L (38-126); Anion Gap 3 mmol/L (8-16); Aspartate Amino Transferase 147 U/L (14-36); Bilirubin,Total 0.2 mg/dL (0.2-1.3); Blood Urea Nitrogen 45 mg/dL (7-17); Calcium 6.9 mg/dL (8.4-10.2); Carbon Dioxide 24 mmol/L (22-30); Chloride 105 mmol/L (98-107); Estimated CRCL calculation 17 ml/min; Estimated Glomerular Filt Rate 16; Glucose 224 mg/dL (65-110); Potassium 5.5 mmol/L (3.4-5.0); Sodium 132 mmol/L (137-145)
[2022-02-27] MEDS: INSULIN ASPART (*BKC) 100 UNITS/ML SUB-Q (07:21)
[2022-02-27] MEDS: IPRATROPIUM BR 0.02% INH SOLN 0.5 MG/2.5 ML VIAL INHALATION ×4 (08:11→20:35)
[2022-02-27] MEDS: ALBUTEROL SULFATE NEB 2.5 MG/3 ML INH INHALATION ×4 (08:11→20:36)
[2022-02-27] MEDS: BUDESONIDE RESPULE NEB 0.5 MG/2 ML AMP INHALATION ×2 (08:11→20:35)
[2022-02-27 09:14] LABS: Troponin I 0.034 ng/mL (0.000-0.034)
[2022-02-27] MEDS: carvediloL 25 MG TABLET PO ×2 (09:29→20:53)
[2022-02-27] MEDS: SODIUM ZIRCONIUM CYCLOSILICATE 10 GM POWD.PACK PO (09:29)
[2022-02-27] MEDS: INSULIN GLARGINE (*BKC) 100 UNITS/ML 10 UNITS SUB-Q (09:30)
[2022-02-27] MEDS: ENOXAPARIN 30 MG/0.3 ML SYRINGE SUB-Q (09:31)
[2022-02-27] MEDS: PANTOPRAZOLE SODIUM IV 40 MG VIAL IV PUSH (11:39)
[2022-02-27] MEDS: PROPOFOL IV EMULSION 100 ML 8.87 MG IV CONT (12:10)
[2022-02-27 12:35] LABS: Glucose Point of Care 180 mg/dl (65-105)
[2022-02-27] MEDS: methylPREDNISolone SOD SUCC 40 MG VIAL IV PUSH ×2 (13:02→20:54)
--- NOTE | 2022-02-27 14:11 | WPDCNINT ---
Assessment and Plan Assessment and plan (1) Acute hypercapnic respiratory failure: Code(s): J96.02 - Acute respiratory failure with hypercapnia Status: Acute Assessment and Plan: Acute hypercapnic respiratory failure as initial ABGs in the ER showed a pH of 7.10, pCO2 62 and PO2 of 551 -likely related to COPD exacerbation, pneumonia -patient intubated on 02/26/2022 with size 6 ET tube, will switch to size 7.5 ET tube -continue bronchodilators, steroids -continue levofloxacin, vancomycin -sedated with fentanyl and Versed infusion, I have asked the bedside RN is to switch to propofol infusion and maintain RASS of 0 to -1 (2) Cardiac arrest: Code(s): I46.9 - Cardiac arrest, cause unspecified Status: Acute Assessment and Plan: Patient with PEA arrest likely related to respiratory distress and respiratory failure -received 4 rounds of epinephrine, CPR before ROSC -patient is hemodynamically stable -post arrest did not follow commands -CT scan of the brain was normal (3) COPD exacerbation: Code(s): J44.1 - Chronic obstructive pulmonary disease with (acute) exacerbation Status: Acute Assessment and Plan: Patient has a history of COPD, likely exacerbation this time which led her to respiratory distress and failure -continue steroids, bronchodilators and antibiotics -currently on mechanical ventilation (4) Dyslipidemia: Code(s): E78.5 - Hyperlipidemia, unspecified Status: Acute Assessment and Plan: Continue atorvastatin (5) Hypertension: Code(s): I10 - Essential (primary) hypertension Status: Acute Assessment and Plan: Continue carvedilol, hold losartan due to acute kidney injury -will add p.r.n. hydralazine (6) Insulin dependent diabetes mellitus: Status: Acute Assessment and Plan: Continue Accu-Cheks and sliding scale insulin -continue Lantus (7) Tobacco dependence: Code(s): F17.200 - Nicotine dependence, unspecified, uncomplicated Status: Acute Assessment and Plan: Patient has history of tobacco dependence, will senior vice president & general counsel on cessation of smoking, once she is extubated and awake (8) Acute kidney injury: Code(s): N17.9 - Acute kidney failure, unspecified Status: Acute Assessment and Plan: Patient presented with acute kidney injury which most likely is related to cardiac arrest , patient has been recently in the hospital with elevated creatinine with a baseline creatinine of 1.9-2.2. (patient also has has a history of diabetes, essential hypertension, COPD, hypoxic respiratory failure) -on this admission patient's creatinine was 3.20 -creatinine improved this morning to 2.80 -continue to monitor renal function, urine output electrolytes Plan DVT prophylaxis: Lovenox Stress ulcer prophylaxis: Protonix Nutrition: Will start tube feeds Code Status: Full code Critical Care Time Spent: 49 minutes Due to a high probability of clinically significant, life threatening deterioration, the patient required my highest level of preparedness to intervene emergently and I personally spent this critical care time directly and personally managing the patient. This critical care time included obtaining a history; examining the patient; pulse oximetry; ordering and review of studies; arranging urgent treatment with development of a management plan; evaluation of patient's response to treatment; frequent reassessment; and discussions with other providers. It was exclusive of separately billable procedures and treating other patients and teaching time. Please see Assessment and Plan section and the rest of the note for further information on patient assessment and treatment This dictation may have been done utilizing a voice recognition system. Attempts have been made to correct errors. However, there may be uncorrected grammatical, spelling, and recognitions errors present. [place] Operator Consult Note Consu
[2022-02-27] MEDS: ALBUMIN HUMAN 25% 25 GM/100 ML 100 ML IVPB ×2 (14:39→17:17)
[2022-02-27] MEDS: hydrALAZINE HCL 20 MG/ML VIAL 10 MG IV PUSH (14:40)
[2022-02-27] MEDS: MIDAZOLAM HCL (*CRX) 2 MG/2 ML VIAL (15:14)
[2022-02-27] MEDS: PROPOFOL IV EMULSION 100 ML 23.64 MG IV CONT (17:14)
[2022-02-27 17:16] LABS: Glucose Point of Care 156 mg/dl (65-105)
[2022-02-27] MEDS: ATORVASTATIN 40 MG TABLET 80 MG PO (20:53)
[2022-02-27] MEDS: PROPOFOL IV EMULSION 100 ML 26.6 MG IV CONT (21:22)
[2022-02-28] VITALS (42 sets, daily range): BP systolic 123–208; BP diastolic 58–93; PULSE 75–111; RESP 20–37; TEMP 36.6–37.1; O2SAT 93–100
[2022-02-28] MEDS: IPRATROPIUM BR 0.02% INH SOLN 0.5 MG/2.5 ML VIAL INHALATION ×7 (00:15→23:32)
[2022-02-28] MEDS: ALBUTEROL SULFATE NEB 2.5 MG/3 ML INH INHALATION ×7 (00:15→23:30)
[2022-02-28] MEDS: PROPOFOL IV EMULSION 100 ML 26.6 MG IV CONT ×4 (00:24→11:12)
[2022-02-28] MEDS: ALBUMIN HUMAN 25% 25 GM/100 ML 100 ML IVPB ×2 (00:24→06:26)
[2022-02-28 01:07] LABS: Glucose Point of Care 176 mg/dl (65-105)
[2022-02-28 04:36] LABS: Hematocrit 21.7 % (37.0-47.0); Mean Corpuscular HGB Conc 32.3 g/dl (32-36); Mean Corpuscular Hemoglobin 35.2 pg (26-34); Mean Platelet Volume 10.1 fl (7.4-10.4); Platelet Count Result 183 k/mm3 (150-375); Red Blood Count 1.99 M/mm3 (4.2-5.4); Red Cell Distribution Width 13.7 % (11.5-14.5); White Blood Count 7.7 K/mm3 (4.5-10.0)
[2022-02-28 05:06] LABS: Alveolar/Arterial O2 Gradient 107.8 mmHg; Carboxyhemoglobin 0.7 % THb (0-2.0); Fractional Inspired Oxygen 30 %; HCO3 ABG 22.1 mEq/l (22.0-26.0); Oxygen Saturation ABG 90.3 % (95.0-100.0); PCO2 ABG 39.3 mmHg (35.0-45.0); PO2 ABG 59.9 mmHg (80.0-100.0); Reduced Hemoglobin 10.3 %THb (0-5.0); Total Hemoglobin 8.7 g/dL (12.0-18.0); pH ABG 7.367 (7.350-7.450)
[2022-02-28 05:10] LABS: Device VENTILATOR; Modified Allen's Test Pass; Site Drawn LEFT RADIAL
[2022-02-28 05:11] LABS: Arterial Blood Gas PEEP 5 cmH2O; Arterial Blood Gas Tidal Volume 350 ml; Arterial Blood Gas Vent Mode CMV; Arterial Blood Gas Ventilator rate 20 /MIN
[2022-02-28 05:16] LABS: Lactic Acid Reflex 0.9 mmol/L (0.7-2.0)
[2022-02-28 05:17] LABS: Alanine Aminotransferase 67 U/L (6-35); Albumin Level 3.4 g/dL (3.5-5.1); Alkaline Phosphatase 102 U/L (38-126); Anion Gap 7 mmol/L (8-16); Aspartate Amino Transferase 62 U/L (14-36); Bilirubin,Total 0.2 mg/dL (0.2-1.3); Blood Urea Nitrogen 39 mg/dL (7-17); Calcium 7.3 mg/dL (8.4-10.2); Carbon Dioxide 23 mmol/L (22-30); Chloride 108 mmol/L (98-107); Estimated CRCL calculation 20 ml/min; Estimated Glomerular Filt Rate 20; Glucose 208 mg/dL (65-110); Magnesium 2.2 mg/dL (1.6-2.3); Phosphorus 3.7 mg/dL (2.5-4.5); Potassium 4.5 mmol/L (3.4-5.0); Sodium 138 mmol/L (137-145)
[2022-02-28 05:22] LABS: Band Neutrophils Percent 1 % (0-6); Lymphocytes Absolute Manual 0.53 K/mm3 (1.1-4.5); Monocytes Absolute Manual 0.07 K/mm3 (0.1-0.90); Monocytes Percent Manual 1 % (3-9); Neutrophils Absolute Manual 7.08 K/mm3 (1.7-7.2); Neutrophils Percent Manual 91 % (46-73); Platelet Estimate Adequate (Adequate); Total Cells Counted 100
[2022-02-28 05:23] LABS: Anisocytosis 1+ (NORMAL); Large Platelets Present; Macrocytosis 1+ (NORMAL); Microcytosis 1+ (NORMAL); Poikilocytosis 1+ (NORMAL)
[2022-02-28 05:24] LABS: Hypochromasia 2+ (NORMAL); Schistocytes None Seen (NORMAL); Smudge Cells PRESENT; Target Cells 2+ (NORMAL)
[2022-02-28] MEDS: INSULIN ASPART (*BKC) 100 UNITS/ML SUB-Q ×2 (06:26→18:00)
[2022-02-28] MEDS: methylPREDNISolone SOD SUCC 40 MG VIAL IV PUSH ×3 (06:27→20:53)
[2022-02-28] MEDS: PANTOPRAZOLE SODIUM IV 40 MG VIAL IV PUSH ×2 (08:02→20:07)
[2022-02-28] MEDS: carvediloL 25 MG TABLET PO ×2 (08:02→20:06)
[2022-02-28] MEDS: INSULIN GLARGINE (*BKC) 100 UNITS/ML 10 UNITS SUB-Q (08:02)
[2022-02-28] MEDS: ENOXAPARIN 30 MG/0.3 ML SYRINGE SUB-Q (08:02)
[2022-02-28] MEDS: LACTATED RINGERS 1,000 ML 75 ML IV CONT ×2 (08:02→22:17)
[2022-02-28] MEDS: BUDESONIDE RESPULE NEB 0.5 MG/2 ML AMP INHALATION ×2 (08:58→20:30)
--- NOTE | 2022-02-28 10:37 | PCFNICU ---
ICU Rounding Note: Pt current nutrition is Vital AF 1.2 at 50 ml/hr. Last recorded weight is 99.5 kg. Bowel Motility:No BM reported. Labs Reviewed:Glu 208,Alb 3.4,BUN 39, Cr 2.4,GFR 20, Hct 21.7,Hgb 7.0 Meds Noted:Fentanyl, Versed, Vancomycin, Protonix, NovoLog, Lantus, Atrovent Skin: WNL Additional Notes:Patient remains on mechanical vent. Tolerating tube feedings per nursing of Vital AF 1.2 at 50 ml/hr. Flush 30 ml q 4 hours. Tube feedings providing 1440 kcals/ 82 gms protein/892 ml water. Agree with diet orders. Following daily in ICU rounds. Will monitor daily in ICU rounds as reassess every Saturday and Saturday.
[2022-02-28 11:40] LABS: Glucose Point of Care 181 mg/dl (65-105)
[2022-02-28 12:00] LABS: Hematocrit 29.2 % (37.0-47.0); Hemoglobin 9.5 g/dL (12.0-15.0); Mean Corpuscular HGB Conc 32.5 g/dl (32-36); Mean Corpuscular Hemoglobin 34.7 pg (26-34); Mean Corpuscular Volume 106.6 fl (80-100); Mean Platelet Volume 10.3 fl (7.4-10.4); Platelet Count Result 217 k/mm3 (150-375); Red Blood Count 2.74 M/mm3 (4.2-5.4); Red Cell Distribution Width 15.9 % (11.5-14.5)
--- NOTE | 2022-02-28 12:00 | WPDINTPN ---
Progress Note: A&P Assessment and Plan (1) Acute hypercapnic respiratory failure: Code(s): J96.02 - Acute respiratory failure with hypercapnia Status: Acute Assessment and Plan: Acute hypercapnic respiratory failure as initial ABGs in the ER showed a pH of 7.10, pCO2 62 and PO2 of 551 -likely related to COPD exacerbation, pneumonia -patient intubated on 02/26/2022 with size 6 ET tube, and was switched to size 7.5 ET tube -continue bronchodilators, steroids -continue levofloxacin, vancomycin -patient has history of MRSA in her sputum -sedated with propofol -not a candidate for weaning at this time due to her mental status (2) Cardiac arrest: Code(s): I46.9 - Cardiac arrest, cause unspecified Status: Acute Assessment and Plan: Patient with PEA arrest likely related to respiratory distress and respiratory failure -received 4 rounds of epinephrine, CPR before ROSC -patient is hemodynamically stable -post arrest did not follow commands -CT scan of the brain was normal -she had recent echocardiogram which was reviewed Normal left ventricular size and contractility. ? 3. Grade 1 diastolic noncompliance. ? 4. Moderately calcified mitral valve annulus. ? 5. Sclerotic aortic valve which is not functionally stenotic. (3) COPD exacerbation: Code(s): J44.1 - Chronic obstructive pulmonary disease with (acute) exacerbation Status: Acute Assessment and Plan: Patient has a history of COPD, likely exacerbation this time which led her to respiratory distress and failure -continue steroids, bronchodilators and antibiotics -currently on mechanical ventilation (4) Dyslipidemia: Code(s): E78.5 - Hyperlipidemia, unspecified Status: Acute Assessment and Plan: Continue atorvastatin (5) Hypertension: Code(s): I10 - Essential (primary) hypertension Status: Acute Assessment and Plan: Continue carvedilol, hold losartan due to acute kidney injury -will add p.r.n. hydralazine (6) Insulin dependent diabetes mellitus: Status: Acute Assessment and Plan: Continue Accu-Cheks and sliding scale insulin -continue Lantus (7) Tobacco dependence: Code(s): F17.200 - Nicotine dependence, unspecified, uncomplicated Status: Acute Assessment and Plan: Patient has history of tobacco dependence, will student support counselor on cessation of smoking, once she is extubated and awake (8) Acute kidney injury: Code(s): N17.9 - Acute kidney failure, unspecified Status: Acute Assessment and Plan: Patient presented with acute kidney injury which most likely is related to cardiac arrest , patient has been recently in the hospital with elevated creatinine with a baseline creatinine of 1.9-2.2. (patient also has has a history of diabetes, essential hypertension, COPD, hypoxic respiratory failure) -on this admission patient's creatinine was 3.20 -creatinine improving -continue cautious IV fluids -continue to monitor renal function, urine output electrolytes (9) Anemia: Code(s): D64.9 - Anemia, unspecified Status: Acute Assessment and Plan: Patient has chronic anemia. And hemoglobin trended down to 7.0 this morning. No obvious source of bleeding patient did receive CPR but also received IV fluids which could lead to hemodilution She received 1 unit of PRBC this morning Coags were normal Continue hemoglobin monitoring IV PPI Hold Lovenox Further workup if patient continues to drop her hemoglobin (10) Encephalopathy: Code(s): G93.40 - Encephalopathy, unspecified Status: Acute Assessment and Plan: Multifactorial cephalopathy likely secondary due to medication and possible component of an anoxic injury CT head negative on presentation Patient was on Versed and fentanyl until yesterday morning Currently on propofol. Holding propofol patient does not wake up or follow commands but does get asynchronous with the ventilator
[2022-02-28 12:41] LABS: Ammonia < 9 umol/L (9-30)
[2022-02-28 13:30] LABS: Thyroid Stimulating Hormone Reflex 0.269 uIU/mL (0.465-4.68)
[2022-02-28] MEDS: hydrALAZINE HCL 20 MG/ML VIAL 10 MG IV PUSH ×2 (15:06→18:41)
[2022-02-28] MEDS: PROPOFOL IV EMULSION 100 ML 29.55 MG IV CONT ×3 (15:06→21:47)
[2022-02-28 17:51] LABS: Glucose Point of Care 257 mg/dl (65-105)
[2022-02-28 18:28] LABS: Hematocrit 26.5 % (37.0-47.0); Hemoglobin 8.8 g/dL (12.0-15.0); Mean Corpuscular HGB Conc 33.2 g/dl (32-36); Mean Corpuscular Hemoglobin 34.8 pg (26-34); Mean Corpuscular Volume 104.7 fl (80-100); Mean Platelet Volume 10.7 fl (7.4-10.4); Platelet Count Result 212 k/mm3 (150-375); Red Blood Count 2.53 M/mm3 (4.2-5.4); Red Cell Distribution Width 15.9 % (11.5-14.5); White Blood Count 10.9 K/mm3 (4.5-10.0)
[2022-02-28] MEDS: ATORVASTATIN 40 MG TABLET 80 MG PO (20:06)
[2022-02-28] MEDS: levoFLOXacin 500 MG/D5W 100 ML 500 MG/100 ML BAG 66.67 MG IVPB (20:53)
[2022-03-01] VITALS (34 sets, daily range): BP systolic 115–202; BP diastolic 55–115; PULSE 74–118; RESP 21–42; TEMP 36.3–37.1; O2SAT 92–96
[2022-03-01 00:01] LABS: Glucose Point of Care 245 mg/dl (65-105)
[2022-03-01] MEDS: INSULIN ASPART (*BKC) 100 UNITS/ML SUB-Q ×3 (00:01→11:58)
[2022-03-01] MEDS: PROPOFOL IV EMULSION 100 ML 29.55 MG IV CONT ×5 (01:27→20:43)
[2022-03-01 05:06] LABS: Alveolar/Arterial O2 Gradient 97.5 mmHg; Base Excess ABG -5.8 mEq/l (+/-2.0); Carboxyhemoglobin 0.8 % THb (0-2.0); Fractional Inspired Oxygen 30 %; HCO3 ABG 20.1 mEq/l (22.0-26.0); Oxygen Content ABG 15.6 %vol (16.0-22.0); Oxygen Saturation ABG 91.8 % (95.0-100.0); Oxyhemoglobin 90.8 % THb (90.0-100.0); PCO2 ABG 41.4 mmHg (35.0-45.0); PO2 ABG 67.8 mmHg (80.0-100.0); PO2 FiO2 Ratio Arterial Blood 2.26 %; Reduced Hemoglobin 8.4 %THb (0-5.0); Total Hemoglobin 12.2 g/dL (12.0-18.0); pH ABG 7.305 (7.350-7.450)
[2022-03-01 05:07] LABS: Device VENTILATOR; Modified Allen's Test Unable to perform; Site Drawn LEFT RADIAL
[2022-03-01] MEDS: ALBUTEROL SULFATE NEB 2.5 MG/3 ML INH INHALATION ×6 (05:07→23:32)
[2022-03-01] MEDS: IPRATROPIUM BR 0.02% INH SOLN 0.5 MG/2.5 ML VIAL INHALATION ×6 (05:07→23:32)
[2022-03-01 05:08] LABS: Arterial Blood Gas PEEP 5 cmH2O; Arterial Blood Gas Tidal Volume 350 ml; Arterial Blood Gas Vent Mode CMV; Arterial Blood Gas Ventilator rate 350 /MIN
[2022-03-01 05:13] LABS: Basophils Percent Auto 0.1 % (0.2-1.2); Hematocrit 28.7 % (37.0-47.0); Hemoglobin 9.3 g/dL (12.0-15.0); Immature Granulocyte Percent A 0.8 % (0-0.5); Lymphocytes Absolute Auto 0.36 K/mm3 (0.9-3.2); Mean Corpuscular HGB Conc 32.4 g/dl (32-36); Mean Corpuscular Hemoglobin 33.8 pg (26-34); Mean Corpuscular Volume 104.4 fl (80-100); Mean Platelet Volume 11.1 fl (7.4-10.4); Monocytes Absolute Auto 0.5 K/mm3 (0.1-0.6); Neutrophils Percent Auto 92.1 % (45.5-73.1); Platelet Count Result 225 k/mm3 (150-375); Red Blood Count 2.75 M/mm3 (4.2-5.4); Red Cell Distribution Width 15.8 % (11.5-14.5)
[2022-03-01 05:21] LABS: Alanine Aminotransferase 51 U/L (6-35); Albumin Level 3.3 g/dL (3.5-5.1); Alkaline Phosphatase 101 U/L (38-126); Anion Gap 8 mmol/L (8-16); Aspartate Amino Transferase 42 U/L (14-36); Bilirubin,Total 0.2 mg/dL (0.2-1.3); Blood Urea Nitrogen 49 mg/dL (7-17); Calcium 7.4 mg/dL (8.4-10.2); Carbon Dioxide 23 mmol/L (22-30); Chloride 107 mmol/L (98-107); Estimated CRCL calculation 19 ml/min; Estimated Glomerular Filt Rate 26; Glucose 262 mg/dL (65-110); Magnesium 2.5 mg/dL (1.6-2.3); Phosphorus 3.4 mg/dL (2.5-4.5); Potassium 4.4 mmol/L (3.4-5.0); Sodium 138 mmol/L (137-145)
[2022-03-01 05:36] LABS: Anisocytosis 1+ (NORMAL); Platelet Estimate Adequate (Adequate)
[2022-03-01 05:37] LABS: Poikilocytosis 1+ (NORMAL); Schistocytes None Seen (NORMAL); Tear Drop Cells 1+ (NORMAL)
[2022-03-01] MEDS: methylPREDNISolone SOD SUCC 40 MG VIAL IV PUSH ×2 (05:49→17:56)
[2022-03-01 07:32] LABS: Free T4 Free Thyroxine Reflex 1.67 ng/dL (0.78-2.19)
[2022-03-01] MEDS: INSULIN GLARGINE (*BKC) 100 UNITS/ML 10 UNITS SUB-Q (08:17)
[2022-03-01] MEDS: hydrALAZINE HCL 20 MG/ML VIAL 10 MG IV PUSH ×2 (08:17→12:26)
[2022-03-01] MEDS: PANTOPRAZOLE SODIUM IV 40 MG VIAL IV PUSH ×2 (08:17→20:43)
[2022-03-01] MEDS: carvediloL 25 MG TABLET PO ×2 (08:18→20:43)
[2022-03-01] MEDS: BUDESONIDE RESPULE NEB 0.5 MG/2 ML AMP INHALATION ×2 (09:01→20:15)
[2022-03-01 09:04] LABS: Total Triiodothyronine (T3) 0.65 NG/ML (0.97-1.69)
--- NOTE | 2022-03-01 09:14 | WPDNEURCNPN ---
Assessment and Plan Assessment and plan (1) Encephalopathy: Code(s): G93.40 - Encephalopathy, unspecified Status: Acute (2) Cardiac arrest: Code(s): I46.9 - Cardiac arrest, cause unspecified Status: Acute (3) Acute hypercapnic respiratory failure: Code(s): J96.02 - Acute respiratory failure with hypercapnia Status: Acute (4) Acute kidney injury: Code(s): N17.9 - Acute kidney failure, unspecified Status: Acute (5) Anemia: Code(s): D64.9 - Anemia, unspecified Status: Acute Plan Aleida King is a 76 year old female with a history of COPD, diastolic heart failure, coronary artery disease, type II diabetes mellitus, presenting post respiratory failure and cardiac arrest. Concern for post cardiac arrest anoxic brain injury given encephalopathy. Could also be a metabolic component given the uremia. Less likely to cause encephalopathy in the acute setting, but macrocytic anemia could be due to folate or B12 deficiency we may have some affect on mental status. - Will obtain routine EEG - Repeat CT head -- may see some changes suggest of hypoxic injury since she is a couple days out from insult - Check B12 and folate - MRI brain eventually when stable Consult date: 03/01/22 Reason for consult: Encephalopathy HPI: Aleida Knig is a 76 year old female with a history of COPD, diastolic heart failure, coronary artery disease, type II diabetes mellitus, presenting post respiratory failure and cardiac arrest. Patient developed respiratory distress at home on 02/27/22. EMS called called and patient appeared to be in respiratory failure and then became unresponsive. CPR and she received 4 rounds of epinephrine. She was intubated. ROSC was eventually achieved (time?). She was taken to [place] ED where she was started on antibiotics and sedated with versed and fentanyl. Work-up at the time included negative CXR, negative COVID/RSV/influenza, UA negative. She was treated for staph aureus related pneumonia in January 2022, so she is currenlty being treated with levoquin/vancomycin as well as methylprednisolone for COPD. Her sedation was eventually transitioned to propofol. When stopping propofol, patient does not appear to open eyes or follow and commands. CT head is normal. Ammonia normal. TSH slightly low at 0.269. Labs today are significant for uremia (49), leukocytosis (on steroids), and macrocytic anemia. Review of Systems Review of Systems: ROS unobtainable: Yes unobtainable due to endotracheal tube, unobtainable due to medical condition and unobtainable due to mental status [facility] Past Medical History Medical History Anxiety Chronic obstructive pulmonary disease Coronary artery disease Dyslipidemia Hypertension Insulin dependent diabetes mellitus Pneumonia Tobacco dependence Surgical History Surgical History History of cardiac catheterization History of heart artery stent History of right hip replacement Family History Family History Other Unknown family medical history Social History Social History Social History: Surrogate medical decision maker: Carol Cha, daughter. Code status: Full code. Smoking status: Current every day smoker Alcohol intake: never Substance use: never Spiritual care concerns: No Meds Home Medications and Allergies Home Medications Medication Instructions Recorded Confirmed Type aspirin 81 mg tablet,delayed 81 mg PO DAILY 01/31/22 02/27/22 History release atorvastatin 80 mg tablet 80 mg PO HS 01/31/22 02/27/22 History carvedilol 25 mg tablet 25 mg PO BID 01/31/22 02/27/22 History cholecalciferol (vitamin D3) 25 25 mcg PO DAILY 01/31/22 02/27/22 History mcg (1,000 unit) capsule coenzyme Q10 5
--- NOTE | 2022-03-01 10:46 | WPDINTPN ---
Progress Note: A&P Assessment and Plan (1) Acute hypercapnic respiratory failure: Code(s): J96.02 - Acute respiratory failure with hypercapnia Status: Acute Assessment and Plan: Acute hypercapnic respiratory failure as initial ABGs in the ER showed a pH of 7.10, pCO2 62 and PO2 of 551 -likely related to COPD exacerbation, pneumonia -patient intubated on 02/26/2022 with size 6 ET tube, and was switched to size 7.5 ET tube -continue bronchodilators, steroids -continue levofloxacin, vancomycin -patient has history of MRSA in her sputum -sedated with propofol with daily sedation holiday -not a candidate for weaning at this time due to her mental status (2) Cardiac arrest: Code(s): I46.9 - Cardiac arrest, cause unspecified Status: Acute Assessment and Plan: Patient with PEA arrest likely related to respiratory distress and respiratory failure -received 4 rounds of epinephrine, CPR before ROSC -patient is hemodynamically stable -post arrest she did not follow commands -CT scan of the brain was normal -she had recent echocardiogram which was reviewed Normal left ventricular size and contractility. ? 3. Grade 1 diastolic noncompliance. ? 4. Moderately calcified mitral valve annulus. ? 5. Sclerotic aortic valve which is not functionally stenotic. She has chronic lower extremity edema and had Dopplers on her last admission last month which were negative for DVT I her ordered repeat Dopplers to rule out any new DVT (3) COPD exacerbation: Code(s): J44.1 - Chronic obstructive pulmonary disease with (acute) exacerbation Status: Acute Assessment and Plan: Patient has a history of COPD, likely exacerbation this time which led her to respiratory distress and failure -continue steroids but decrease dose, bronchodilators and antibiotics -currently on mechanical ventilation (4) Dyslipidemia: Code(s): E78.5 - Hyperlipidemia, unspecified Status: Acute Assessment and Plan: Continue atorvastatin (5) Hypertension: Code(s): I10 - Essential (primary) hypertension Status: Acute Assessment and Plan: Continue carvedilol, hold losartan due to acute kidney injury -will add p.r.n. hydralazine (6) Insulin dependent diabetes mellitus: Status: Acute Assessment and Plan: Continue Accu-Cheks and sliding scale insulin -continue Lantus (7) Tobacco dependence: Code(s): F17.200 - Nicotine dependence, unspecified, uncomplicated Status: Acute Assessment and Plan: Patient has history of tobacco dependence, will assessment counselor on cessation of smoking, once she is extubated and awake (8) Acute kidney injury: Code(s): N17.9 - Acute kidney failure, unspecified Status: Acute Assessment and Plan: Patient presented with acute kidney injury which most likely is related to cardiac arrest , patient has been recently in the hospital with elevated creatinine with a baseline creatinine of 1.9-2.2. (patient also has has a history of diabetes, essential hypertension, COPD, hypoxic respiratory failure) -on this admission patient's creatinine was 3.20 -creatinine improving -she has been on IV fluids which I will now hold -continue to monitor renal function, urine output electrolytes (9) Anemia: Code(s): D64.9 - Anemia, unspecified Status: Acute Assessment and Plan: Patient has chronic anemia. And hemoglobin trended down to 7.0 this morning. No obvious source of bleeding patient did receive CPR but also received IV fluids which could lead to hemodilution She received 1 unit of PRBC this morning and since that hemoglobin has been stable Coags were normal Continue hemoglobin monitoring IV PPI Resume Lovenox now Further workup if patient continues to drop her hemoglobin (10) Encephalopathy: Code(s): G93.40 - Encephalopathy, unspecified Status: Acute Assessment and Plan: Multifactorial cephalopathy likely seconda
--- NOTE | 2022-03-01 10:47 | PCFNICU ---
ICU Rounding Note: Pt current nutrition is Vital AF 1.2 at 50 ml/hr. Nutrition recommendation: decrease rate to 35 ml/hr. Last recorded weight is 68.4 kg. Bowel Motility:No BM reported. Labs Reviewed:Glu 262, GFR 26,BUN 49, Cr 1.9,Alb 3.3 Meds Noted:Propofol 50 mcgs or 29.55 ml/sg=367 kcals,Vancomycin, Protonix, NovoLog, Lantus, Atrovent Skin: WNL Additional Notes: Patient remains on mechanical vent. Sedation change to Propofol on 02/28 providing an additional 780 kcals. Discussed with Manifold [employer] reducing tube feeding rate to 35 ml/hr. MD orders for 35 ml/hr. Total nutrition: 1704 kcals/58 gms protein/624 ml water. Flush 30 ml q 4 hours. Agree with diet orders at this time. Following daily in ICU rounds. Will monitor daily in ICU rounds as reassess every Saturday and Saturday.
[2022-03-01 11:47] LABS: Glucose Point of Care 306 mg/dl (65-105)
[2022-03-01] MEDS: ENOXAPARIN 30 MG/0.3 ML SYRINGE SUB-Q (12:27)
[2022-03-01] MEDS: LABETALOL HCL INJ 100 MG/20 ML VIAL 20 MG IV PUSH ×2 (13:35→18:25)
--- NOTE | 2022-03-01 14:15 | PC.NURSE ---
Dr. Dennis called this RN with EEG results. New orders for 4.5G IVPB Keppra loading dose now, then 12 hours after completion of loading dose, start maintenance dose of Keppra of 1000mg IVPB q12h.
--- NOTE | 2022-03-01 14:36 | PM.EVENT ---
Event Note Event Note Event Note: Repeat head CT was negative for any acute change. EEG shows seizures as per my discussion with the neurologist. Patient has been started on Keppra and propofol resumed. Blood pressure was significantly elevated when she was off of sedation during sedation holiday. I have also added scheduled Norvasc for elevated blood pressure and p.r.n. labetalol. Neurologist recommends transfer to tertiary facility for continues EEG possible. I have called [facility] and they do not have any open bed. Patient has been placed on wait list for [facility]. I have also spoken to [facility] and again they do not have any bed and patient has been placed on wait list.
[2022-03-01] MEDS: levETIRAcetam IV 4,500 MG in DEXTROSE 5% 100 ML 460 MG IVPB (15:10)
[2022-03-01] MEDS: amLODIPine BESYLATE 5 MG TABLET PO (15:10)
[2022-03-01 17:56] LABS: Glucose Point of Care 167 mg/dl (65-105)
[2022-03-01] MEDS: ATORVASTATIN 40 MG TABLET 80 MG PO (20:43)
[2022-03-02] VITALS (23 sets, daily range): BP systolic 125–147; BP diastolic 49–61; PULSE 69–88; RESP 19–30; TEMP 36.7–36.9; O2SAT 93–97
[2022-03-02] MEDS: INSULIN ASPART (*BKC) 100 UNITS/ML SUB-Q ×3 (00:44→08:12)
[2022-03-02 00:47] LABS: Glucose Point of Care 243 mg/dl (65-105)
[2022-03-02] MEDS: levETIRAcetam 1000MG/NACL100ML 1,000 MG/100 ML BAG 400 MG IVPB (02:34)
[2022-03-02] MEDS: PROPOFOL IV EMULSION 100 ML 29.55 MG IV CONT ×3 (02:39→12:48)
[2022-03-02] MEDS: ALBUTEROL SULFATE NEB 2.5 MG/3 ML INH INHALATION ×3 (03:15→11:34)
[2022-03-02] MEDS: IPRATROPIUM BR 0.02% INH SOLN 0.5 MG/2.5 ML VIAL INHALATION ×3 (03:15→11:34)
[2022-03-02 04:21] LABS: Basophils Percent Auto 0.1 % (0.2-1.2); Hematocrit 27.8 % (37.0-47.0); Hemoglobin 8.8 g/dL (12.0-15.0); Immature Granulocyte Absolute 0.08 K/mm3 (0.00-0.031); Immature Granulocyte Percent A 0.8 % (0-0.5); Lymphocytes Absolute Auto 0.57 K/mm3 (0.9-3.2); Lymphocytes Percent Auto 5.9 % (18.3-44.2); Mean Corpuscular HGB Conc 31.7 g/dl (32-36); Mean Corpuscular Hemoglobin 33.6 pg (26-34); Mean Corpuscular Volume 106.1 fl (80-100); Monocytes Absolute Auto 0.6 K/mm3 (0.1-0.6); Monocytes Percent Auto 5.8 % (2.6-8.5); Neutrophils Absolute Auto 8.5 K/mm3 (1.3-6.7); Neutrophils Percent Auto 87.4 % (45.5-73.1); Platelet Count Result 198 k/mm3 (150-375); Red Blood Count 2.62 M/mm3 (4.2-5.4); Red Cell Distribution Width 15.9 % (11.5-14.5); White Blood Count 9.7 K/mm3 (4.5-10.0)
[2022-03-02 04:39] LABS: Alanine Aminotransferase 41 U/L (6-35); Albumin Level 3.1 g/dL (3.5-5.1); Alkaline Phosphatase 95 U/L (38-126); Anion Gap 7 mmol/L (8-16); Aspartate Amino Transferase 28 U/L (14-36); Bilirubin,Total 0.2 mg/dL (0.2-1.3); Blood Urea Nitrogen 53 mg/dL (7-17); Calcium 7.4 mg/dL (8.4-10.2); Carbon Dioxide 22 mmol/L (22-30); Chloride 101 mmol/L (98-107); Estimated CRCL calculation 19 ml/min; Estimated Glomerular Filt Rate 24; Glucose 353 mg/dL (65-110); Magnesium 2.5 mg/dL (1.6-2.3); Potassium 4.5 mmol/L (3.4-5.0); Sodium 130 mmol/L (137-145)
[2022-03-02 04:51] LABS: Alveolar/Arterial O2 Gradient 127.8 mmHg; Base Excess ABG -4.6 mEq/l (+/-2.0); Carboxyhemoglobin 0.3 % THb (0-2.0); Fractional Inspired Oxygen 35 %; HCO3 ABG 20.5 mEq/l (22.0-26.0); Methemoglobin ABG 0.1 %THb (0-1.5); Oxygen Saturation ABG 95.1 % (95.0-100.0); Oxyhemoglobin 93.8 % THb (90.0-100.0); PCO2 ABG 37.7 mmHg (35.0-45.0); PO2 ABG 77.9 mmHg (80.0-100.0); PO2 FiO2 Ratio Arterial Blood 2.23 %; Reduced Hemoglobin 5.8 %THb (0-5.0); Total Hemoglobin 9.8 g/dL (12.0-18.0); pH ABG 7.353 (7.350-7.450)
[2022-03-02 04:52] LABS: Device VENTILATOR; Modified Allen's Test Pass; Site Drawn LEFT RADIAL
[2022-03-02 04:53] LABS: Arterial Blood Gas PEEP 5 cmH2O; Arterial Blood Gas Tidal Volume 350 ml; Arterial Blood Gas Vent Mode CMV; Arterial Blood Gas Ventilator rate 20 /MIN
[2022-03-02] MEDS: methylPREDNISolone SOD SUCC 40 MG VIAL IV PUSH (05:36)
[2022-03-02] MEDS: carvediloL 25 MG TABLET PO (07:55)
[2022-03-02] MEDS: amLODIPine BESYLATE 5 MG TABLET PO (07:56)
[2022-03-02] MEDS: PANTOPRAZOLE SODIUM IV 40 MG VIAL IV PUSH (07:56)
[2022-03-02] MEDS: ENOXAPARIN 30 MG/0.3 ML SYRINGE SUB-Q (07:56)
[2022-03-02] MEDS: INSULIN GLARGINE (*BKC) 100 UNITS/ML 20 UNITS SUB-Q (08:12)
[2022-03-02 08:19] LABS: Glucose Point of Care 222 mg/dl (65-105)
--- NOTE | 2022-03-02 08:45 | WPDNEUROLOGY ---
Neurology EEG Report General Information Date of Study: 03/01/22 TEST Routine EEG DIAGNOSIS Encephalopathy, anoxic brain injury CONDITION OF RECORDING Comatose EEG NUMBER [id number] CLINICAL HISTORY Patient is in ICU on vent status post cardiorespiratory arrest. Not on any sedation at this time. EEG DESCRIPTION The recording is continuous. There is no well-developed posterior dominant rhythm or anterior-posterior gradient. The background is symmetrical. There are frequent multifocal epileptiform discharges throughout the recording. There were also 7 electrographic seizures noted during the recording, the shortest seizure being 16 seconds long and the longest being 28 seconds. The seizures appear to originate bifrontally with secondary generalization. Between the seizures, the background consists of diffuse delta range slowing, intermixed with frequent multifocal discharges. Normal sleep architecture was not observed. IMPRESSION This is an abnormal routine EEG due to the presence of frequent multifocal discharges as well as several electrographic seizures, which appear to start bifrontally with secondary generalization. The background also consists of diffuse slowing. This EEG is diagnostic of focal onset seizures with secondary generalization, as well encephalopathy.
[2022-03-02] MEDS: LABETALOL HCL INJ 100 MG/20 ML VIAL 20 MG IV PUSH (09:07)
[2022-03-02] MEDS: BUDESONIDE RESPULE NEB 0.5 MG/2 ML AMP INHALATION (09:11)
--- NOTE | 2022-03-02 09:17 | WPDNEUROPN ---
Progress Note: A&P Assessment and Plan (1) Seizure: Code(s): R56.9 - Unspecified convulsions Status: Acute (2) Cardiac arrest: Code(s): I46.9 - Cardiac arrest, cause unspecified Status: Acute (3) Encephalopathy: Code(s): G93.40 - Encephalopathy, unspecified Status: Acute (4) Acute respiratory failure with hypoxia and hypercarbia: Code(s): J96.01 - Acute respiratory failure with hypoxia; J96.02 - Acute respiratory failure with hypercapnia Status: Acute (5) Acute kidney injury: Code(s): N17.9 - Acute kidney failure, unspecified Status: Acute Plan Aleida King is a 76 year old female with a history of COPD, diastolic heart failure, coronary artery disease, type II diabetes mellitus, presenting post respiratory failure and cardiac arrest. Concern for post cardiac arrest anoxic brain injury given encephalopathy. Course has been complicated by multiple electrographic seizures, as noted on yesterdays EEG. She is on back on propofol in hopes of suppression of seizures. Repeat CT head unchanged from prior. Today's EEG still abnormal due to frequent multifocal discharges, but no seizures noted. - Continue propofol infusion - Maximize Keppra to 2g BID - Patient has been accepted to [facility] for continuous EEG monitoring, will be transferred - MRI brain eventually when stable Subjective Date/time seen: 03/02/22 09:17 Interval history: Aleida King is a 76 year old female with a history of COPD, diastolic heart failure, coronary artery disease, type II diabetes mellitus, presenting post respiratory failure and cardiac arrest. Patient developed respiratory distress at home on 02/27/22. EMS called called and patient appeared to be in respiratory failure and then became unresponsive. CPR and she received 4 rounds of epinephrine. She was intubated. ROSC was eventually achieved (time?). She was taken to [facility] where she was started on antibiotics and sedated with versed and fentanyl. Work-up at the time included negative CXR, negative COVID/RSV/influenza, UA negative. She was treated for staph aureus related pneumonia in January 2022, so she is currenlty being treated with levoquin/vancomycin as well as methylprednisolone for COPD. Her sedation was eventually transitioned to propofol. When stopping propofol, patient does not appear to open eyes or follow and commands. CT head is normal. Ammonia normal. TSH slightly low at 0.269. EEG done yesterday, showed multiple electrographic seizures and very frequent discharges. Loaded with Keppra 4.5g, started maintenance Keppra 1g BID and restarted on propofol infusion. CT head repeated yesterday which essentially is unchanged. Still uremic on labs. EEG today still with frequent discharges but no seizures noted. Review of Systems Review of Systems: ROS unobtainable: Yes unobtainable due to endotracheal tube, unobtainable due to medical condition and unobtainable due to mental status Exam Narrative: Transport team present to take patient to [facility]. Intubated, sedated Mechanically ventilated No spontaneous movements of the extremities Objective Data Vital Signs Vital Signs: Vital Signs - 24 hr 03/01/22 10:00 03/01/22 12:00 03/01/22 12:00 Temperature Pulse Rate 109 H Respiratory Rate 35 H Blood Pressure 177/115 H Pulse Oximetry 95 95 Oxygen Delivery Mechanical Ventilation Fraction of Inspired Oxygen 30 30 03/01/22 12:00 03/01/22 13:35 03/01/22 14:22 Temperature 36.4 C Pulse Rate 113 H 118 H 102 H Respiratory Rate 36 H 42 H Blood Pressure 200/82 H Pulse Oximetry 95 Oxygen Delivery Fraction of Inspired Oxygen 03/01/22 10:00 03/01/22 12:00 03/01/22 14:00 Temperature Pulse Rate 105 H 109 H 105 H Respiratory Rate Blood Pressure Pulse Oximetry Oxygen Delivery Fraction of Inspired Oxygen 03/01/22 16:00 03/01/22 16:00 03/01/22 16:00 Temperature Pulse Rate
--- NOTE | 2022-03-02 09:24 | P.NEURO_ITS ---
Neurology EEG Report General Information Date of Study: 03/02/22 TEST Routine EEG DIAGNOSIS Status epilepticus, encephalopathy, anoxic brain injury CONDITION OF RECORDING Comatose, on sedation (paused for EEG) EEG NUMBER [id number] CLINICAL HISTORY This is a repeat routine EEG on a patient status post cardiorespiratory arrest, currently on vent and unresponsive. She had multiple seizures noted on her EEG yesterday. She was loaded with Keppra and started on propofol infusion. EEG DESCRIPTION The recording is continuous. There is no well-developed posterior dominant rhythm or anterior-posterior gradient. The background is symmetrical, and con sists of delta and theta range activity. There are frequent multifocal epileptiform discharges throughout the recording. No electrographic seizures were noted. Normal sleep architecture was not observed. IMPRESSION This is an abnormal routine EEG due to the presence of frequent multifocal epileptiform discharges throughout the recording. No electrographic seizures were noted. This EEG is suggestive of decreased threshold to have seizure from a focal-onset mechanism. EEG is improved from yesterday given absence of seizures.
--- NOTE | 2022-03-02 09:54 | WPDINTPN ---
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 ? 3. Grade 1 diastolic noncompliance. ? 4. Moderately calcified mitral valve annulus. ? 5. Sclerotic aortic valve which is not functionally stenotic. She has chronic lower extremity edema and had Dopplers were negative for DVT (3) COPD exacerbation: Code(s): J44.1 - Chronic obstructive pulmonary disease with (acute) exacerbation Status: Acute Assessment and Plan: Patient has a history of COPD, likely exacerbation this time which led her to respiratory distress and failure -continue steroids but decrease dose, bronchodilators and antibiotics -currently on mechanical ventilation (4) Dyslipidemia: Code(s): E78.5 - Hyperlipidemia, unspecified Status: Acute Assessment and Plan: Continue atorvastatin (5) Hypertension: Code(s): I10 - Essential (primary) hypertension Status: Acute Assessment and Plan: Continue carvedilol and Norvasc , hold losartan due to acute kidney injury -will add p.r.n. hydralazine and labetalol (6) Insulin dependent diabetes mellitus: Status: Acute Assessment and Plan: Continue Accu-Cheks and sliding scale insulin Increase Lantus (7) Tobacco dependence: Code(s): F17.200 - Nicotine dependence, unspecified, uncomplicated Status: Acute Assessment and Plan: Patient has history of tobacco dependence, will international student counselor on cessation of smoking, once she is extubated and awake (8) Acute kidney injury: Code(s): N17.9 - Acute kidney failure, unspecified Status: Acute Assessment and Plan: Patient presented with acute kidney injury which most likely is related to cardiac arrest , patient has been recently in the hospital with elevated creatinine with a baseline creatinine of 1.9-2.2. (patient also has has a history of diabetes, essential hypertension, COPD, hypoxic respiratory failure) -on this admission patient's creatinine was 3.20 -creatinine improved but still elevated at 2.0 -she was on IV fluids which are now on hold -25% albumin ordered -continue to monitor renal function, urine output electrolytes (9) Anemia: Code(s): D64.9 - Anemia, unspecified Status: Acute Assessment and Plan: Patient has chronic anemia. And hemoglobin trended down to 7.0 this morning. No obvious source of bleeding patient did receive CPR but also received IV fluids which could lead to hemodilution She received 1 unit of PRBC this morning and since that hemoglobin has been stable Coags were normal Continue hemoglobin monitoring IV PPI Lovenox for DVT prophylaxis has been resumed and will be continued Further workup if patient continues to drop her hemoglobin (10) Encephalopathy: Code(s): G93.40 - Encephalopathy, unspecified Status: Acute Assessment and Plan: Multifactorial encephal
--- NOTE | 2022-03-02 11:32 | PM.TDS ---
Transfer Discharge Sum: Prov Provider Date of admission: 02/27/22 09:54 Primary care physician: Alma Rosa Iniguez Admitting clinician: Graeme Ritter DO Consults: 02/27/22 Consult to Physician Routine Comment: Consulting Provider: Salvador Vallejo Reason for consultation: ICU Has provider been notified: Yes 03/01/22 Consult to Physician Routine Comment: spoke w dr @ Consulting Provider: Amanda Dennis scallop cutter/MD group to consult: Neurology Reason for consultation: Encephalopathy Has provider been notified: Yes DS: Admitting Diagnosis Discharge Date 03/02/22 Admitting Diagnosis cardiac arrest DS: Discharge Diagnosis Discharge Diagnosis (1) Acute respiratory failure with hypoxia and hypercarbia: Code(s): J96.01 - Acute respiratory failure with hypoxia; J96.02 - Acute respiratory failure with hypercapnia Status: Acute (2) Cardiac arrest: Code(s): I46.9 - Cardiac arrest, cause unspecified Status: Acute (3) COPD exacerbation: Code(s): J44.1 - Chronic obstructive pulmonary disease with (acute) exacerbation Status: Acute (4) Type 2 diabetes mellitus: Code(s): E11.9 - Type 2 diabetes mellitus without complications Status: Acute Transfer Discharge Sum: Med Medications Active and Home Medications: Home Medications aspirin 81 mg tablet,delayed release 81 mg PO DAILY 01/31/22 [History Confirmed 02/27/22] atorvastatin 80 mg tablet 80 mg PO HS 01/31/22 [History Confirmed 02/27/22] carvedilol 25 mg tablet 25 mg PO BID 01/31/22 [History Confirmed 02/27/22] cholecalciferol (vitamin D3) 25 mcg (1,000 unit) capsule 25 mcg PO DAILY 01/31/22 [History Confirmed 02/27/22] coenzyme Q10 50 mg tablet 50 mg PO DAILY 01/31/22 [History Confirmed 02/27/22] ferrous sulfate 142 mg (45 mg iron) tablet,extended release 142 mg PO DAILY 01/31/22 [History Confirmed 02/27/22] fluticasone 250 mcg-salmeterol 50 mcg/dose blistr powdr for inhalation 1 inh inhalation Q12H 01/31/22 [History Confirmed 02/27/22] furosemide 20 mg tablet 20 mg PO DAILY 01/31/22 [History Confirmed 02/27/22] glipizide 2.5 mg tablet, extended release 24 hr 2.5 mg PO DAILY 01/31/22 [History Confirmed 02/27/22] insulin glargine 100 unit/mL (3 mL) subcutaneous pen (Lantus Solostar U-100 Insulin) 10 unit subcut HS 01/31/22 [History Confirmed 02/27/22] losartan 100 mg tablet 100 mg PO DAILY 01/31/22 [History Confirmed 02/27/22] ropinirole 1 mg tablet 1 mg PO BID 01/31/22 [History Confirmed 02/27/22] tramadol 50 mg tablet 50 mg PO Q8H PRN Pain 01/31/22 [History Confirmed 02/27/22] albuterol sulfate 2.5 mg/3 mL (0.083 %) solution for nebulization 2.5 mg (3 mL) inhalation Q6HRT PRN shortness of breath or wheezing #75 mL 02/05/22 [Rx Confirmed 02/27/22] albuterol sulfate 90 mcg/actuation aerosol inhaler 2 puff inhalation Q6H #8.5 grams 02/05/22 [Rx Confirmed 02/27/22] Active Medications Albuterol (Albuterol Sulfate Neb 2.5 Mg/3 Ml Inh) 2.5 mg INHALATION Q4HRT [facility] Last Admin: 03/02/22 09:11 Dose: 2.5 mg Amlodipine Besylate (Amlodipine Besylate 5 Mg Tablet) 5 mg PO QAM [facility] Last Admin: 03/02/22 07:56 Dose: 5 mg Atorvastatin Calcium (Atorvastatin 40 Mg Tablet) 80 mg PO HS [facility] Last Admin: 03/01/22 20:43 Dose: 80 mg Budesonide (Budesonide Respule Neb 0.5 Mg/2 Ml Amp) 0.5 mg INHALATION Q12HRT [facility] Last Admin: 03/02/22 09:11 Dose: 0.5 mg Carvedilol (Carvedilol 25 Mg Tablet) 25 mg PO Q12HR [facility] Last Admin: 03/02/22 07:55 Dose: 25 mg Dextrose (Dextrose 50% 25 Gm/50 Ml Syringe) 12.5 gm IV PUSH PRN PRN; Protocol PRN Reason: Hypoglycemia Enoxaparin Sodium (Enoxaparin 30 Mg/0.3 Ml Syringe) 30 mg SUB-Q DAILY [facility] Last Admin: 03/02/22 07:56 Dose: 30 mg Glucagon (Glucagon For Inj 1 Mg Vial) 1 mg IM PRN PRN; Protocol PRN Reason: Hypoglycemia Glucose (Glucose Oral Gel 15 Gm Of Glucse In 37.5 Gm Tube) 15 gm PO PRN PRN; Protocol PRN Reason: Hypoglycemia Hydralazine HCl (Hydralazine Hcl 20 Mg/Ml Vial
[2022-03-02 11:39] LABS: Glucose Point of Care 193 mg/dl (65-105)
== END 2022-03-02 13:00 | disposition short-term general hospital (02) | DRG 208 ==
LOC: ANHED 02-27 00:12 → ANHICU 02-27 02:43
PROVIDERS: Internal Medicine; Admitting Provider Student in an Organized Health Care Education/Training Program; Emergency Provider Emergency Medicine; Visit Provider Hospitalist
DX: J96.02 Acute respiratory failure with hypercapnia (principal); I46.8 Cardiac arrest due to other underlying condition; J18.9 Pneumonia, unspecified organism; G92.8 Other toxic encephalopathy; J44.1 Chronic obstructive pulmonary disease with (acute) exacerbation; G93.1 Anoxic brain damage, not elsewhere classified; E87.20 Acidosis, unspecified; N17.9 Acute kidney failure, unspecified; J44.0 Chronic obstructive pulmonary disease with (acute) lower respiratory infection; I50.32 Chronic diastolic (congestive) heart failure; I11.0 Hypertensive heart disease with heart failure; E78.5 Hyperlipidemia, unspecified; E11.9 Type 2 diabetes mellitus without complications; Z20.822 Contact with and (suspected) exposure to COVID-19; R56.9 Unspecified convulsions; I25.10 Atherosclerotic heart disease of native coronary artery without angina pectoris; F41.9 Anxiety disorder, unspecified; F17.210 Nicotine dependence, cigarettes, uncomplicated; Z96.641 Presence of right artificial hip joint; Z95.5 Presence of coronary angioplasty implant and graft; Z79.82 Long term (current) use of aspirin; Z79.4 Long term (current) use of insulin
CPT/HCPCS: 36415; 36430; 36600; 51702; 70450; 71045; 80053; 80202; 81001; 82140; 82375; 82805; 82948; 83050; 83605; 83735; 83880; 84100; 84439; 84443; 84480; 84484; 85025; 85027; 85610; 85730; 86850; 86900; 86901; 86923; 87040; 87070; 87081; 87205; 87637; 93005; 93970; 94003; 94640; 95816; 96361; 96365; 96366; 96375; 99291; A9270; C9113; G0378; J0171; J0360; J1650; J1815; J1953; J1956; J2250; J2704; J2920; J2930; J3010; J3370; J7030; J7120; P9016; P9047